=== PATIENT | male | born 1955 | race Caucasian/White ===

== ENCOUNTER → 2018-03-12 07:20 | Outpatient (CLI) | payer OTHER, SELFPAY ==
--- NOTE | 2018-03-12 07:33 | MRI_ITS ---
STUDY: MRI CERVICAL SPINE WITHOUT CONTRAST REASON FOR EXAM: Male, 63 years old. chronic posterior neck pain, radiates into L shoulder, nki x 6 mons. TECHNIQUE: Standardized fat and water weighted pulse sequences were obtained in the sagittal and axial planes. COMPARISON: None FINDINGS: Normal foramen magnum and brainstem-cervical cord junction. Normal craniovertebral junction. Normal anterior atlantoaxial articulation. Normal odontoid process. There is straightening of the normal cervical lordosis. C2-3: Normal endplates. Normal disc height, signal and morphology. Normal central canal and intervertebral neural foramina. C3-4: Normal endplates. Normal disc height, signal and morphology. Normal central canal and intervertebral neural foramina. C4-5: Normal endplates. Normal disc height, signal and morphology. Normal central canal and intervertebral neural foramina. C5-6: There is mild disc space narrowing and endplate spondylosis. There is a mild disc osteophyte complex with mild central canal stenosis. There is uncovertebral arthropathy with minimal right and moderate left foraminal stenosis C6-7: There is mild disc space narrowing and spondylosis. There is minimal disc osteophyte complex with mild central canal stenosis. There is uncovertebral arthropathy with mild right and minimal left foraminal stenosis. C7-T1: Normal endplates. Normal disc height, signal and morphology. Normal central canal and intervertebral neural foramina. Normal cervical cord. Normal visualized soft tissue structures. MRI/Spine Cervical (Routine) IMPRESSION: C5/C6: Moderate left foraminal stenosis. C6/C7: Mild right foraminal stenosis. Electronically Signed: Juliann Mcneill MD at 8:50 EDT Tel , Service support ,
== END ==
PROVIDERS: Family Provider Family Medicine; PCP Family Medicine; Visit Provider Chiropractor
DX: M50.23 Other cervical disc displacement, cervicothoracic region (principal)
CPT/HCPCS: 72141

== ENCOUNTER 2018-10-29 14:39 | Emergency (ER) | payer OTHER, SELFPAY ==
[2018-10-29 14:43] VITALS: BP 104/63; PULSE 63; RESP 16; TEMP 36.6; O2SAT 96; BMI 26.1
--- NOTE | 2018-10-29 15:11 | ED.DCSUM_ITS ---
History of Present Illness Chief Complaint: Weakness Detail of Chief Complaint: Patient states he staggered secondary to Parkinson's disease Informant: Patient Onset: Today Context: Sudden Onset Timing: Intermittent Quality: Patient states not abnormal having problems with balance or walking Location: See EMS report Current Severity: Mild Maximum Severity: Unable to determine Worsened by: Progression of patient's Parkinson's disease Relieved by: Nothing Associated Symptoms: Patient denies any symptoms. Narrative: Patient is an elderly male with advancing Parkinson's disease. Witnesses saw him stagger. EMS was called. Patient voiced he did not want to be transported. He was transferred because of concern for altered level of consciousness. Patient is not alert but he is oriented x3. Patient answers all questions appropriately. Patient's psychomotor skills are slowed and has masked face appearance consistent with Parkinson's disease. Review of system negative other than problems with balance and Parkinson's disease Prior similar symptoms: Yes Recent Illness/Hospitalization: No Past Medical History - Allergies and Home Meds Allergies/Adverse Reactions: Allergies No Known Allergies Allergy (Verified 10/29/18 14:47) Primary Care Physician: Dean Andrade MD [Primary Care Provider] - Past Medical History: - - Parkinson's disease Surgical History: noncontributory Lives: Spouse/ Significant Other, - - Patient states he contacted his . She works until [employer]. He informed me that she will come to the hospital after work to get him. Smoking Status: Never smoker Alcohol: None Drugs: None Review of Systems General: Denies: Chills, Fever, Malaise, Subjective, Sweats Eyes: Denies: Visual changes - bilaterally, Blurred Vision - bilaterally, Diplopia ENT: Denies: Bilateral ear pain, Rhinorrhea, Sore throat Cardiovascular: Denies: Chest pain, Palpitations Respiratory: Denies: Dyspnea, Cough, Dyspnea on exertion Gastrointestinal: Denies: Abdominal pain, Nausea, Vomiting, Diarrhea, Melena, Hematochezia Genitourinary: Denies: Dysuria, Hematuria, Frequency Musculoskeletal: Denies: Back pain, Extremity Pain Skin: Denies: Rash, Wounds Neurological: Reports: - - Problems with walking secondary to Parkinson's diseas e. Denies: Headache, Weakness, Parasthesia, Numbness Hematologic: Denies: Easy bruising, Easy bleeding Allergy: Denies: Uticaria Physical Exam Vital Signs/Narrative: Vital Signs Temp Pulse Resp BP Pulse Ox 10/29/18 14:43 97.8 F 63 16 104/63 96 Inital Vital Signs reviewed: Yes General: Well nourished, Well developed, No Acute Distress Head: Normocephalic, Atraumatic. Negative for: Tenderness Eyes: Perrl, EOMI. Negative for: Pale conjunctiva, Scleral icterus ENT: Moist mucous membranes, No rhinorrhea Neck: Supple, Nontender, No lymphadenopathy, No JVD Cardiovascular: Regular rate, Regular rhythm, No murmurs, Normal S1, Normal S2 Respiratory: No distress, CTA bilaterally, Chest nontender Abdomen: Soft, Nontender, Nondistended, Normal bowel sounds, No masses Back: Nontender, Normal Inspection Extremities: Nontender, No edema Skin: Normal color, No rash Neurological: Oriented x3, Cranial nerves II-XII grossly intact, Normal Strength, Normal Sensation. Negative for: Alert Psychological: - - Affect is flat. Thought content is normal. Diagnostic/Tx/Re-eval - Medical Decision Making It is my professional opinion the patient's gait problem and slow psychomotor skills are secondary to Parkinson's disease. Since he has absolutely no complaints and a normal exam other than the flat affect and cogwheel rigidity it is my opinion that no testing is required. Nurse was asked to ambulate to make sure patient does not fall and will await arrival of to confirm this is patient's baseline. was spoken to. She states this is his baseline. Therefore, patient will be discharged to home with his . ED Disposition - Plan for ED Patient: Disposition: Home or Assisted Living Diagnosis: Sequela of Parkinson's disease Instructions: Discharge Instructions for Parkinson's Disease Referrals: Dean Andrade MD [Primary Care Provider] - As Needed
--- NOTE | 2018-10-29 15:31 | ED.RN ---
PT REPORT SQUAD BROUGHT HIM IN TO BE SEEN AGAINST HIS WILL. PT AMBULATES DOWN THE HALLWAY WITH NO DIFFICULTY. AT BEDSIDE WITH PT AND REPORTS HE IS AT HIS BASELINE. THIS RN EMPATHIZES WITH PT REGUARDING SITUATION TODAY. PT TO BE D/C.
--- NOTE | 2018-10-29 15:41 | ED.RN ---
PT'S LOBO JAMES'S PHONE NUMBER IS [phone] IF SHE NEEDS TO BE CONTACTED
== END 2018-10-29 15:41 | disposition home or self-care (01) ==
PROVIDERS: Emergency Provider Emergency Medicine; Family Provider Family Medicine; PCP Family Medicine
DX: G20 Parkinson's disease (principal); Z79.899 Other long term (current) drug therapy
CPT/HCPCS: 99284

== ENCOUNTER 2020-10-05 16:29 | Emergency (ER) | payer OTHER, SELFPAY ==
[2020-10-05] VITALS (8 sets, daily range): BP systolic 131–177; BP diastolic 72–103; PULSE 73–88; RESP 14–20; TEMP 36.9; O2SAT 95–99; BMI 24.5
[2020-10-05] MEDS: LORazepam 2 MG/ML Syringe IM (16:45)
--- NOTE | 2020-10-05 16:47 | EKG12_ITS ---
Test Reason : CONFUSION Blood Pressure : / mmHG Vent. Rate : 079 BPM Atrial Rate : 079 BPM P-R Int : 158 ms QRS Dur : 086 ms QT Int : 390 ms P-R-T Axes : 052 029 051 degrees QTc Int : 447 ms Normal sinus rhythm with sinus arrhythmia Normal ECG Confirmed by SARAH ALMODOVAR, JEFFY ([id number]), non linear editor JAVY MCGHEE ([id number]) on 10/07/2020 11:14:44 AM Referred By: RUSS Confirmed By:JEFFY SMITH MD
--- NOTE | 2020-10-05 16:50 | ED.DCSUM_ITS ---
History of Present Illness Chief Complaint: Confusion Narrative: This patient is a 65-year-old male who presents with agitation. He is from a nursing facility. He has Parkinson's disease. He was apparently seen last week at [facility] for increased agitation. He had an evaluation that was notable only for questionable UTI. He was put on antibiotics. His agitation is increased. He was given oral Ativan today. He became increasingly agitated aggressive hitting staff. I am unable to obtain history from the patient. Past Medical History - Allergies and Home Meds Allergies/Adverse Reactions: Allergies No Known Allergies Allergy (Verified 10/05/20 16:41) Primary Care Physician: Dean Andrade MD [Primary Care Provider] - Past Medical History: - - Parkinson's disease Surgical History: noncontributory Smoking Status: Never smoker Review of Systems ROS: Unable to Obtain Physical Exam Vital Signs/Narrative: Vital Signs Temp Pulse Resp BP Pulse Ox 10/05/20 16:35 98.5 F 88 20 H 132/77 H 96 Inital Vital Signs reviewed: Yes General: Well nourished, Well developed Head: Normocephalic Eyes: EOMI ENT: Moist mucous membranes Neck: Supple Cardiovascular: Regular rate, Regular rhythm Respiratory: No distress, CTA bilaterally Abdomen: Soft, Nontender Skin: Normal color Neurological: Alert, - - Alert but not oriented he does not appear to have focal or lateralizing neurological deficits Psychological: Agitated Diagnostic/Tx/Re-eval Impressions Brain CT 10/05/20 20:25 IMPRESSION: Normal unenhanced CT scan of the brain. Electronically Signed: Lux Mcfadden MD at 20:52 EST , Service support , Chest X-Ray 10/05/20 20:30 IMPRESSION: Normal x-ray examination of the chest. Electronically Signed: Lux Mcfadden MD at 20:55 EST , Service support , 10/05/20 20:25 Brain/Head without Contrast [CT] Stat 10/05/20 20:30 CXR [Chest 1 View (Portable)] [RAD] Stat 10/05/20 17:10 Mucosa - Nose SARS-CoV-2 Antigen (Rapid) - Final Laboratory Results 10/05/20 10/05/20 10/05/20 16:22 18:30 18:30 WBC Cancelled Corrected WBC Cancelled RBC Cancelled Hgb Cancelled Hct Cancelled MCV Cancelled MCH Cancelled MCHC Cancelled RDW Std Deviation Cancelled RDW Coeff of Shira Cancelled Plt Count Cancelled MPV Cancelled Immature Gran % (Auto) Cancelled Neut % (Auto) Cancelled Lymph % (Auto) Cancelled [place] % (Auto) Cancelled Eos % (Auto) Cancelled Baso % (Auto) Cancelled Absolute Neuts (auto) Cancelled Absolute Lymphs (auto) Cancelled Total Counted Cancelled Neutrophils % (Manual) Cancelled Band Neutrophils % Cancelled Lymphocytes % (Manual) Cancelled Monocytes % (Manual) Cancelled Eosinophils % (Manual) Cancelled Basophils % (Manual) Cancelled Metamyelocytes % Cancelled Myelocytes % Cancelled Promyelocytes % Cancelled Blast Cells % Cancelled Plasma Cell % (Manual) Cancelled Other Cells % Cancelled Nucleated RBC % Cancelled Nucleated RBCs/100 WBC Cancelled Differential Comment Cancelled Diff Path Review Cancelled Hypersegmented Neuts Cancelled Atypical Lymphocytes Cancelled Reactive Lymphocytes Cancelled Smudge Cells Cancelled Toxic Granulation Cancelled Toxic Vacuolation Cancelled Dohle Bodies Cancelled Stacie Rods Cancelled Platelet Estimate Cancelled Plt Morphology Comment Cancelled RBC Morphology Cancelled Polychromasia Cancelled Hypochromasia Cancelled Poikilocytosis Cancelled Basophilic Stippling Cancelled Anisocytosis Cancelled Microcytosis Cancelled Macrocytosis Cancelled Spherocytes Cancelled Sickle Cells Cancelled Target Cells Cancelled Tear Drop Cells Cancelled Ovalocytes Cancelled Stomatocytes Cancelled [place] Bodies Cancelled Zach Cells Cancelled Bite Cells Cancelled Crenated Cell Cancelled Acanthocytes (Spur) Cancelled Rouleaux Cancelled Schistocytes Cancelled Sodium Cancelled Potassium Cancelled Chloride Cancelled Carbon Dioxide Cancelled Anion Gap Cancelled BUN Cancelled Creatinine Cancelled Estim Creat Clear Calc Cancelled Est GFR (MDRD) Af Amer Cancelled Est GFR (MDRD) Non-Af Cancelled BUN/Creatinine Ratio Cancelled Glucose Cancelled Calcium Cancelled Total Bilirubin Cancelled AST Cancelled ALT Cancelled Alkaline Phosphatase Cancelled Total Creatine Kinase Total Protein Cancelled Albumin Cancelled Globulin Cancelled Albumin/Globulin Ratio Cancelled Urine Color Urine Clarity Urine pH Ur Specific [place] Urine Protein Urine Glucose (UA) Urine Ketones Urine Occult Blood Urine Nitrite Urine Bilirubin Urine Urobilinogen Ur Leukocyte Esterase Urine RBC Urine WBC Ur Squamous Epith Cells Ur Transition Epith Cell Ur Renal Epithelial Cell Urine Bacteria Urine Mucus Fluid Crystals Cancelled Fluid Crystal Source Cancelled Fl Crystal Path Review Cancelled Synovial Source Cancelled Synovial Color Cancelled Synovial Appearance Cancelled Synovial Volume Cancelled Synovial Viscosity Cancelled Synovial WBC Cancelled Synovial RBC Cancelled Synovial Tot Cell Ct Cancelled Synov Polynuclear WBCs Cancelled Synov Mononuclear WBCs Cancelled Synovial Neutrophils Cancelled Synovial Lymphocytes Cancelled Synovial Monocytes Cancelled Synovial Plasma Cells Cancelled Synovial Other Cells Cancelled Synovial Polynuclear % Cancelled Synovial Mononuclear % Cancelled Synovial Path Comment Cancelled Urine Opiates Screen Urine Methadone Screen Ur Barbiturates Screen Ur Phencyclidine Scrn Ur Amphetamines Screen U Methamphetamin-MDMA U Benzodiazepines Scrn Urine Cocaine Screen U Cannabinoids Screen Ur Drug Screen Comment Ethyl Alcohol 10/05/20 10/05/20 10/05/20 18:30 19:30 19:30 WBC 6.6 Corrected WBC RBC 4.95 Hgb 14.6 Hct 44.4 MCV 89.7 MCH 29.5 MCHC 32.9 RDW Std Deviation 43.8 RDW Coeff of Shira 13.4 Plt Count 349 MPV 9.1 Immature Gran % (Auto) 0.200 Neut % (Auto) 64.0 Lymph % (Auto) 24.2 [place] % (Auto) 9.9 Eos % (Auto) 1.2 Baso % (Auto) 0.5 Absolute Neuts (auto) 4.2 Absolute Lymphs (auto) 1.59 Total Counted Neutrophils % (Manual) Band Neutrophils % Lymphocytes % (Manual) Monocytes % (Manual) Eosinophils % (Manual) Basophils % (Manual) Metamyelocytes % Myelocytes % Promyelocytes % Blast Cells % Plasma Cell % (Manual) Other Cells % Nucleated RBC % 0 Nucleated RBCs/100 WBC Differential Comment Diff Path Review Hypersegmented Neuts Atypical Lymphocytes Reactive Lymphocytes Smudge Cells Toxic Granulation Toxic Vacuolation Dohle Bodies Stacie Rods Platelet Estimate Plt Morphology Comment RBC Morphology Polychromasia Hypochromasia Poikilocytosis Basophilic Stippling Anisocytosis Microcytosis Macrocytosis Spherocytes Sickle Cells Target Cells Tear Drop Cells Ovalocytes Stomatocytes [place] Bodies Zach Cells Bite Cells Crenated Cell Acanthocytes (Spur) Rouleaux Schistocytes Sodium 141 Potassium 4.0 Chloride 109 H Carbon Dioxide 27.0 Anion Gap 5 BUN 24 H Creatinine 0.93 Estim Creat Clear Calc 69.80 Est GFR (MDRD) Af Amer 105 Est GFR (MDRD) Non-Af 87 BUN/Creatinine Ratio 25.9 H Glucose 104 Calcium 9.2 Total Bilirubin 0.60 AST 22 ALT 21 Alkaline Phosphatase 76 Total Creatine Kinase Total Protein 7.2 Albumin 4.1 Globulin 3.1 Albumin/Globulin Ratio 1.3 Urine Color Urine Clarity Urine pH Ur Specific [place] Urine Protein Urine Glucose (UA) Urine Ketones Urine Occult Blood Urine Nitrite Urine Bilirubin Urine Urobilinogen Ur Leukocyte Esterase Urine RBC Urine WBC Ur Squamous Epith Cells Ur Transition Epith Cell Ur Renal Epithelial Cell Urine Bacteria Urine Mucus Fluid Crystals Fluid Crystal Source Fl Crystal Path Review Synovial Source Synovial Color Synovial Appearance Synovial Volume Synovial Viscosity Synovial WBC Synovial RBC Synovial Tot Cell Ct Synov Polynuclear WBCs Synov Mononuclear WBCs Synovial Neutrophils Synovial Lymphocytes Synovial Monocytes Synovial Plasma Cells Synovial Other Cells Synovial Polynuclear % Synovial Mononuclear % Synovial Path Comment Urine Opiates Screen Urine Methadone Screen Ur Barbiturates Screen Ur Phencyclidine Scrn Ur Amphetamines Screen U Methamphetamin-MDMA U Benzodiazepines Scrn Urine Cocaine Screen U Cannabinoids Screen Ur Drug Screen Comment Ethyl Alcohol Cancelled 10/05/20 10/05/20 10/05/20 19:30 19:30 19:45 WBC Corrected WBC RBC Hgb Hct MCV MCH MCHC RDW Std Deviation RDW Coeff of Shira Plt Count MPV Immature Gran % (Auto) Neut % (Auto) Lymph % (Auto) [place] % (Auto) Eos % (Auto) Baso % (Auto) Absolute Neuts (auto) Absolute Lymphs (auto) Total Counted Neutrophils % (Manual) Band Neutrophils % Lymphocytes % (Manual) Monocytes % (Manual) Eosinophils % (Manual) Basophils % (Manual) Metamyelocytes % Myelocytes % Promyelocytes % Blast Cells % Plasma Cell % (Manual) Other Cells % Nucleated RBC % Nucleated RBCs/100 WBC Differential Comment Diff Path Review Hypersegmented Neuts Atypical Lymphocytes Reactive Lymphocytes Smudge Cells Toxic Granulation Toxic Vacuolation Dohle Bodies Stacie Rods Platelet Estimate Plt Morphology Comment RBC Morphology Polychromasia Hypochromasia Poikilocytosis Basophilic Stippling Anisocytosis Microcytosis Macrocytosis Spherocytes Sickle Cells Target Cells Tear Drop Cells Ovalocytes Stomatocytes [place] Bodies [place] Cells Bite Cells Crenated Cell Acanthocytes (Spur) Rouleaux Schistocytes Sodium Potassium Chloride Carbon Dioxide Anion Gap BUN Creatinine Estim Creat Clear Calc Est GFR (MDRD) Af Amer Est GFR (MDRD) Non-Af BUN/Creatinine Ratio Glucose Calcium Total Bilirubin AST ALT Alkaline Phosphatase Total Creatine Kinase 221 Total Protein Albumin Globulin Albumin/Globulin Ratio Urine Color Yellow Urine Clarity Clear Urine pH 7.0 Ur Specific [place] 1.010 Urine Protein Negative Urine Glucose (UA) Normal Urine Ketones Negative Urine Occult Blood 25 H Urine Nitrite Negative Urine Bilirubin Negative Urine Urobilinogen Normal Ur Leukocyte Esterase Negative Urine RBC 0-5 SEEN Urine WBC 0 SEEN Ur Squamous Epith Cells 0 SEEN Ur Transition Epith Cell 0 SEEN Ur Renal Epithelial Cell 0-5 SEEN Urine Bacteria 0 SEEN Urine Mucus 0 SEEN Fluid Crystals Fluid Crystal Source Fl Crystal Path Review Synovial Source Synovial Color Synovial Appearance Synovial Volume Synovial Viscosity Synovial WBC Synovial RBC Synovial Tot Cell Ct Synov Polynuclear WBCs Synov Mononuclear WBCs Synovial Neutrophils Synovial Lymphocytes Synovial Monocytes Synovial Plasma Cells Synovial Other Cells Synovial Polynuclear % Synovial Mononuclear % Synovial Path Comment Urine Opiates Screen Urine Methadone Screen Ur Barbiturates Screen Ur Phencyclidine Scrn Ur Amphetamines Screen U Methamphetamin-MDMA U Benzodiazepines Scrn Urine Cocaine Screen U Cannabinoids Screen Ur Drug Screen Comment Ethyl Alcohol 3.0 10/05/20 19:45 WBC Corrected WBC RBC Hgb Hct MCV MCH MCHC RDW Std Deviation RDW Coeff of Shira Plt Count MPV Immature Gran % (Auto) Neut % (Auto) Lymph % (Auto) [place] % (Auto) Eos % (Auto) Baso % (Auto) Absolute Neuts (auto) Absolute Lymphs (auto) Total Counted Neutrophils % (Manual) Band Neutrophils % Lymphocytes % (Manual) Monocytes % (Manual) Eosinophils % (Manual) Basophils % (Manual) Metamyelocytes % Myelocytes % Promyelocytes % Blast Cells % Plasma Cell % (Manual) Other Cells % Nucleated RBC % Nucleated RBCs/100 WBC Differential Comment Diff Path Review Hypersegmented Neuts Atypical Lymphocytes Reactive Lymphocytes Smudge Cells Toxic Granulation Toxic Vacuolation Dohle Bodies Stacie Rods Platelet Estimate Plt Morphology Comment RBC Morphology Polychromasia Hypochromasia Poikilocytosis Basophilic Stippling Anisocytosis Microcytosis Macrocytosis Spherocytes Sickle Cells Target Cells Tear Drop Cells Ovalocytes Stomatocytes [place] Bodies [place] Cells Bite Cells Crenated Cell Acanthocytes (Spur) Rouleaux Schistocytes Sodium Potassium Chloride Carbon Dioxide Anion Gap BUN Creatinine Estim Creat Clear Calc Est GFR (MDRD) Af Amer Est GFR (MDRD) Non-Af BUN/Creatinine Ratio Glucose Calcium Total Bilirubin AST ALT Alkaline Phosphatase Total Creatine Kinase Total Protein Albumin Globulin Albumin/Globulin Ratio Urine Color Urine Clarity Urine pH Ur Specific [place] Urine Protein Urine Glucose (UA) Urine Ketones Urine Occult Blood Urine Nitrite Urine Bilirubin Urine Urobilinogen Ur Leukocyte Esterase Urine RBC Urine WBC Ur Squamous Epith Cells Ur Transition Epith Cell Ur Renal Epithelial Cell Urine Bacteria Urine Mucus Fluid Crystals Fluid Crystal Source Fl Crystal Path Review Synovial Source Synovial Color Synovial Appearance Synovial Volume Synovial Viscosity Synovial WBC Synovial RBC Synovial Tot Cell Ct Synov Polynuclear WBCs Synov Mononuclear WBCs Synovial Neutrophils Synovial Lymphocytes Synovial Monocytes Synovial Plasma Cells Synovial Other Cells Synovial Polynuclear % Synovial Mononuclear % Synovial Path Comment Urine Opiates Screen NEGATIVE Urine Methadone Screen NEGATIVE Ur Barbiturates Screen NEGATIVE Ur Phencyclidine Scrn NEGATIVE Ur Amphetamines Screen NEGATIVE U Methamphetamin-MDMA NEGATIVE U Benzodiazepines Scrn NEGATIVE Urine Cocaine Screen NEGATIVE U Cannabinoids Screen NEGATIVE Ur Drug Screen Comment Ethyl Alcohol - Medical Decision Making On arrival patient was agitated refusing to lay back in bed aggressive towards staff. He was placed in restraints. He was given intramuscular Ativan, we have no Haldol available due to a shortage. Patient been very agitated. He was also given intramuscular Geodon. EKG shows sinus rhythm at a rate of 79 with sinus arrhythmia otherwise normal. Serum labs are unremarkable. CT of the head and chest x-ray are unremarkable. Patient continued to be agitated. An IV was established with blood draw and patient was ultimately given 2 mg of further IV Ativan. On reevaluation he is resting comfortably. He was able to be removed from restraints. I do believe he will require hospitalization such as to a geriatric psychiatric unit for dementia with behavioral disturbance. I spoke to crisis. They will evaluate the patient once more alert. Patient signed out to the oncoming physician. Ultimate plan would be hospitalization. ED Disposition - Plan for ED Patient: Disposition: Psychiatric Hospital or Unit Diagnosis: Dementia with behavioral disturbance Referrals: Dean Andrade MD [Primary Care Provider] -
--- NOTE | 2020-10-05 16:55 | NURSING ---
NO OLD EKGS
[2020-10-05] MEDS: Ziprasidone IM 20 MG/ML VIAL 10 MG IM (17:23)
[2020-10-05 19:38] LABS: Absolute Lymphocyte Count 1.59 X10^3/uL (0.83-4.51); Absolute Neutrophil Count 4.2 X10^3/uL (2.0-7.7); Basophil# 0.03 X10^3/uL; Basophil% 0.5 % (0-1); Eosinophil# 0.08 X10^3/uL; Eosinophils% 1.2 % (0-5); Hematocrit 44.4 % (40-54); Hemoglobin 14.6 g/dL (13.0-16.5); Lymphocyte # 1.59 X10^3/ul (4.0); Lymphocyte % 24.2 % (19-41); Mean Corp Hgb Conc 32.9 g/dL (32-36); Mean Corpuscular Hgb 29.5 pg (27.0-32.0); Mean Corpuscular Volume 89.7 fL (80-94); Mean Platelet Vol. 9.1 fl (6.2-12.0); Monocyte# 0.65 X10^3/uL; Monocyte% 9.9 % (0-10); NRBC Flagged by Analyzer 0 % (0-5); Neutrophil # 4.22 X10^3/uL (2.7-7.7); Platelet Count 349 K/mm3 (150-450); RBC Distribution Width CV 13.4 % (11.6-14.6); RBC Distribution Width SD 43.8 fl (35.1-43.9); Red Blood Count 4.95 M/mm3 (4.6-6.2); White Blood Count 6.6 K/mm3 (4.4-11.0)
[2020-10-05] MEDS: LORazepam 2 MG/ML Syringe 1 MG IV ×2 (19:39→19:51)
[2020-10-05 19:56] LABS: ALB/GLOB Ratio 1.3 RATIO (0.9-2.4); AST(SGOT) 22 U/L (15-37); Alanine Aminotransfer ALT/SGPT 21 U/L (16-61); Albumin, Serum 4.1 g/dL (3.2-5.0); Alkaline Phosphatase 76 U/L (45-117); Anion Gap 5 (5-15); BUN 24 mg/dL (7-18); BUN/Creat Ratio 25.9 RATIO (10-20); Calcium,Total 9.2 mg/dL (8.5-10.1); Chloride 109 mmol/L (98-107); Creatinine, Serum 0.93 mg/dL (0.70-1.30); EST Glomerular Filtration Rate 87 mL/min (>60); Est Glom Filt Rate - Afr Amer 105 mL/min (>60); Globulin 3.1 g/dL (2.2-4.2); Glucose 104 mg/dL (74-106); Protein, Total 7.2 g/dL (6.4-8.2); Sodium Level 141 mmol/L (136-145)
[2020-10-05 19:57] LABS: Bacteria 0 SEEN /hpf (None Seen); Mucous, Urine 0 SEEN /hpf (<or=2+); Squamous Epithelial Cells - UA 0 SEEN /hpf (0-5); White Blood Cells 0 SEEN /hpf (0-5)
[2020-10-05 20:11] LABS: CPK Total, Creatine Kinase 221 U/L (39-308)
[2020-10-05 20:17] LABS: Color, Urine Yellow (Yellow); Glucose, Dipstick Normal (Normal); Ketone-Dipstick Negative (Negative); Leukocyte Esterase-Dipstick Negative /ul (Negative); Nitrite-Dipstick Negative (Negative); Occult Blood-Urine 25 /ul (Negative); Protein-Dipstick Negative (Negative); Urine Bilirubin Dipstick Negative (Negative); Urine Clarity Clear (Clear); Urine Urobilinogen Normal (Normal)
--- NOTE | 2020-10-05 20:25 | CT_ITS ---
STUDY: CT BRAIN WITHOUT CONTRAST REASON FOR EXAM: Male, 65 years old. CONFUSION AND COMBATIVE. PT HAS DEMENTIA RADIATION DOSAGE (If Supplied By Facility): CTDIvol = ( 44.99 ) mGy, DLP = ( 812.98 ) mGycm TECHNIQUE: Transaxial CT imaging of the brain was performed without administration of intravenous contrast material. Individualized dose optimization techniques were used for this CT. COMPARISON: No relevant priors. FINDINGS: Normal soft tissue structures. Normal calvarium. Normal size ventricles and extra-axial spaces for the patient''s age. Normal white matter tracts of the cerebral hemispheres. Normal basal ganglia and thalami. Normal brainstem. Normal cerebellum. There is no intracranial hemorrhage. There are no findings of an acute ischemic infarction. Normal visualized paranasal sinuses. CT/Brain/Head without Contrast IMPRESSION: Normal unenhanced CT scan of the brain. Electronically Signed: Lux Mcfadden MD at 20:52 EST , Service support ,
[2020-10-05 20:27] LABS: Amphetamine Urine VISTA NEGATIVE (<1000 ng/mL); Barbiturate Urine VISTA NEGATIVE (< 200 ng/mL); Benzodiazepine Urine VISTA NEGATIVE (< 200 ng/mL); Cocaine Urine VISTA NEGATIVE (< 300 ng/mL); Ecstacy Urine VISTA NEGATIVE (< 500 ng/mL); Methadone Urine VISTA NEGATIVE (< 300 ng/mL); PCP Urine VISTA NEGATIVE (< 25 ng/mL); THC Urine VISTA NEGATIVE (< 50 ng/mL); Vista UDS pH Range 6
--- NOTE | 2020-10-05 20:30 | RAD_ITS ---
STUDY: X-RAY CHEST REASON FOR EXAM: Male, 65 years old. combative and confused. TECHNIQUE: Single AP portable view of the chest. COMPARISON: None. FINDINGS: The lungs are clear and expanded. There is no demonstrated pleural abnormality. Normal size heart. Normal mediastinum and mary anne. Normal visualized pulmonary arteries. Normal visualized aortic arch and descending thoracic aorta. Normal visualized thoracic spine. Normal visualized ribs, clavicles, and shoulders. There is no demonstrated abnormality of the visualized soft tissue structures of the upper abdomen. RAD/Chest 1 View (Portable) IMPRESSION: Normal x-ray examination of the chest. Electronically Signed: Lux Mcfadden MD at 20:55 EST , Service support ,
[2020-10-05 20:32] LABS: Renal Epithelial Cells 0-5 SEEN /hpf (0-5)
[2020-10-05 20:33] LABS: Red Blood Cells-Urine 0-5 SEEN /hpf (0-5)
[2020-10-05 20:37] LABS: Transitional Epithelial - Ur 0 SEEN /hpf (0-5)
--- NOTE | 2020-10-05 21:18 | ED.RN ---
PAGED [facility], AND FAXED THE REPORT. JOANN IS CENTRIFUGAL SUPERVISOR
[2020-10-06] VITALS (7 sets, daily range): BP systolic 119–136; BP diastolic 69–84; PULSE 67–85; RESP 14–18; TEMP 36.7; O2SAT 96–97
--- NOTE | 2020-10-06 03:07 | ED.RN ---
CALLED [facility] TO REQUEST AN UPDATE ON PLACEMENT, WAITING FOR A RESPONSE
--- NOTE | 2020-10-06 05:27 | ED.RN ---
SPOKE TO [facility], FAXED MORE INFO REQUESTED, SHE IS WORKING ON PLACEMENT STARTING WITH JASPER
--- NOTE | 2020-10-06 06:12 | ED.RN ---
[facility] called given information. additional information being faxed to them at this time
--- NOTE | 2020-10-06 07:17 | NURSING ---
FAXED DRUG SCREEN AND DR CLEARANCE TO [facility]
--- NOTE | 2020-10-06 07:44 | NURSING ---
FAXED COPY OF PINK SLIP AND HALFW[employer] PAPERS
--- NOTE | 2020-10-06 08:56 | ED.RN ---
[facility] ETA 30 MINUTES
== END 2020-10-06 10:01 ==
PROVIDERS: Emergency Provider Emergency Medicine; PCP Family Medicine
DX: F03.91 Unspecified dementia, unspecified severity, with behavioral disturbance (principal); G20 Parkinson's disease
CPT/HCPCS: 70450; 71045; 80053; 80307; 81001; 82077; 82550; 85025; 87426; 93005; 96372; 96374; 99285; A4216; J3486

== ENCOUNTER 2020-10-27 14:32 | Emergency (ER) | payer OTHER, SELFPAY ==
[2020-10-05 16:35] VITALS: BMI 24.5
[2020-10-27 14:34] VITALS: BP 158/66; PULSE 119; RESP 18; TEMP 37.7; O2SAT 96; BMI 23.1
--- NOTE | 2020-10-27 14:37 | EKG12_ITS ---
Test Reason : Blood Pressure : / mmHG Vent. Rate : 091 BPM Atrial Rate : 091 BPM P-R Int : 164 ms QRS Dur : 098 ms QT Int : 380 ms P-R-T Axes : 039 003 -21 degrees QTc Int : 467 ms Normal sinus rhythm Left ventricular hypertrophy with repolarization abnormality Abnormal ECG Confirmed by LISA ALMODOVAR, DUNIA ([id number]), editor dictionary SHIRAZ DIETRICH ([id number]) on 10/31/2020 9:55:39 AM Referred By: FELI Confirmed By:VILLA GONZALEZ MD
--- NOTE | 2020-10-27 14:38 | CT_ITS ---
STUDY: CT BRAIN WITHOUT CONTRAST REASON FOR EXAM: Male, 65 years old. altered mental status RADIATION DOSAGE (If Supplied By Facility): CTDIvol = ( 60.81 ) mGy, DLP = ( 1067.08 ) mGycm TECHNIQUE: Transaxial CT imaging of the brain was performed without administration of intravenous contrast material. Individualized dose optimization techniques were used for this CT. COMPARISON: 10/05/2020. FINDINGS: Normal soft tissue structures. Normal calvarium. Normal size ventricles and extra-axial spaces for the patient''s age. Normal white matter tracts of the cerebral hemispheres. Normal basal ganglia and thalami. Normal brainstem. Normal cerebellum. There is no intracranial hemorrhage. There are no findings of an acute ischemic infarction. Mild mucosal thickening in the right maxillary sinus. No change since prior study. CT/Brain/Head without Contrast IMPRESSION: Normal unenhanced CT scan of the brain. No evidence for acute bleed. If concern for acute infarct MRI recommended. Electronically Signed: Petr Coughlin MD at 16:28 EST , Service support ,
[2020-10-27] MEDS: Haloperidol Lactate 5 MG/ML Vial 10 MG IM (14:40)
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
[2020-10-27 15:49] LABS: Absolute Lymphocyte Count 0.71 X10^3/uL (0.83-4.51); Absolute Neutrophil Count 5.5 X10^3/uL (2.0-7.7); Basophil# 0.03 X10^3/uL; Basophil% 0.4 % (0-1); Eosinophil# 0.04 X10^3/uL; Eosinophils% 0.6 % (0-5); Hematocrit 39.8 % (40-54); Hemoglobin 13.2 g/dL (13.0-16.5); Lymphocyte # 0.71 X10^3/ul (4.0); Lymphocyte % 10.3 % (19-41); Mean Corp Hgb Conc 33.2 g/dL (32-36); Mean Corpuscular Hgb 30.2 pg (27.0-32.0); Mean Corpuscular Volume 91.1 fL (80-94); Monocyte# 0.55 X10^3/uL; NRBC Flagged by Analyzer 0 % (0-5); Neutrophil # 5.53 X10^3/uL (2.7-7.7); Neutrophil % 80.3 % (47-70); Platelet Count 289 K/mm3 (150-450); RBC Distribution Width CV 13.2 % (11.6-14.6); RBC Distribution Width SD 44.5 fl (35.1-43.9); Red Blood Count 4.37 M/mm3 (4.6-6.2); White Blood Count 6.9 K/mm3 (4.4-11.0)
[2020-10-27 15:58] LABS: Bacteria 0 SEEN /hpf (None Seen); Red Blood Cells-Urine 0 SEEN /hpf (0-5); Squamous Epithelial Cells - UA 0 SEEN /hpf (0-5)
[2020-10-27 16:02] LABS: Color, Urine Amber (Yellow); Glucose, Dipstick 50 mg/dl (Normal); Ketone-Dipstick 15 mg/dl (Negative); Leukocyte Esterase-Dipstick 25 /ul (Negative); Nitrite-Dipstick Negative (Negative); Occult Blood-Urine 10 /ul (Negative); Protein-Dipstick 15 mg/dl (Negative); Urine Bilirubin Dipstick Negative (Negative); Urine Clarity Clear (Clear); Urine Urobilinogen Normal (Normal)
[2020-10-27 16:12] LABS: ALB/GLOB Ratio 1.3 RATIO (0.9-2.4); AST(SGOT) 18 U/L (15-37); Alanine Aminotransfer ALT/SGPT 14 U/L (16-61); Albumin, Serum 3.5 g/dL (3.2-5.0); Alkaline Phosphatase 60 U/L (45-117); Anion Gap 8 (5-15); BUN 35 mg/dL (7-18); Calcium,Total 8.6 mg/dL (8.5-10.1); Chloride 105 mmol/L (98-107); Creatinine, Serum 1.25 mg/dL (0.70-1.30); EST Glomerular Filtration Rate 62 mL/min (>60); Est Glom Filt Rate - Afr Amer 75 mL/min (>60); Estimated Creatinine Clearance 55.82 ml/min; Globulin 2.7 g/dL (2.2-4.2); Glucose 220 mg/dL (74-106); Potassium 2.9 mmol/L (3.5-5.1); Protein, Total 6.2 g/dL (6.4-8.2); Sodium Level 138 mmol/L (136-145)
[2020-10-27 16:15] LABS: Mucous, Urine RARE /hpf (<or=2+); White Blood Cells 0-5 SEEN /hpf (0-5)
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
--- NOTE | 2020-10-27 16:18 | RAD_ITS ---
STUDY: X-RAY - PELVIS REASON FOR EXAM: Male, 65 years old. injury TECHNIQUE: One view of the pelvis was obtained. COMPARISON: None. FINDINGS: There is a non-specific bowel gas pattern. Normal visualized soft tissue structures. Normal bilateral iliac wings, sacroiliac joints and visualized sacrum. Normal visualized bilateral superior and inferior pubic rami. Normal pubic symphysis. Normal ischial tuberosities. Normal visualized right femoral head. Normal right acetabulum. Normal right hip joint. Normal visualized left femoral head. Normal left acetabulum. Normal left hip joint. RAD/Pelvis 1 or 2 Views IMPRESSION: Normal x-ray examination of the pelvis. Electronically Signed: Petr Coughlin MD at 17:02 EST , Service support ,
--- NOTE | 2020-10-27 16:30 | RAD_ITS ---
STUDY: X-RAY CHEST REASON FOR EXAM: Male, 65 years old. injury TECHNIQUE: AP portable COMPARISON: None. FINDINGS: Less than optimal inspiratory effort is seen however the lungs are clear.. There is no demonstrated pleural abnormality. Borderline cardiomegaly.. Normal mediastinum and mary anne. Normal visualized pulmonary arteries. Normal visualized aortic arch and descending thoracic aorta. Dorsal spine and shoulders demonstrate degenerative change Normal visualized ribs, and clavicles. There is no demonstrated abnormality of the visualized soft tissue structures of the upper abdomen. RAD/Chest 1 View IMPRESSION: Diminished inspiratory effort. No acute disease Electronically Signed: Petr Coughlin MD at 17:01 EST , Service support ,
[2020-10-27 16:48] LABS: Alcohol, Blood (Medical)-Serum < 3.0 mg/dL; Valproic Acid (Depakene) Level 20 ug/mL (50-100)
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
[2020-10-27 17:16] LABS: Amphetamine Urine VISTA NEGATIVE (<1000 ng/mL); Barbiturate Urine VISTA NEGATIVE (< 200 ng/mL); Benzodiazepine Urine VISTA NEGATIVE (< 200 ng/mL); Cocaine Urine VISTA NEGATIVE (< 300 ng/mL); Ecstacy Urine VISTA NEGATIVE (< 500 ng/mL); Methadone Urine VISTA NEGATIVE (< 300 ng/mL); PCP Urine VISTA NEGATIVE (< 25 ng/mL); THC Urine VISTA NEGATIVE (< 50 ng/mL); Vista UDS pH Range 5
[2020-10-27] MEDS: Potassium Chloride 10mEq/100mL 10 MEQ/100 ML IV.SOLN. 100 MEQ IV BOLUS (17:46)
--- NOTE | 2020-10-27 17:59 | CM.ED ---
SOCIAL WORK Call to [facility]. Per intake, not in network with patient's insurance. Call to [facility], spoke with intake. Worker reports in network with patient's insurance and will review referral. Referral faxed at this time. Ilana Schroeder, INVASIVE MANAGER, EDITOR PRODUCER
[2020-10-27 18:11] VITALS: BP 132/94; PULSE 103; RESP 20; TEMP 37; O2SAT 94
--- NOTE | 2020-10-27 18:32 | CM.ED ---
SOCIAL WORK Call from [facility]. Intake reports reviewed with physician. They would like patient observed for 2 hours and called at 8:30p with behavioral update. Staff updated. Referral pending at [facility]. Ilana Schroeder MSW, CONCRETE BOOM PUMP OPERATOR
[2020-10-27 20:05] VITALS: BP 131/63; PULSE 80; RESP 17; O2SAT 97
--- NOTE | 2020-10-27 20:23 | CM.ED ---
SOCIAL WORK Call to [facility] to update on patient's behavioral status per request. front worker requesting updated medication list and [place] at this time. Ilana Schroeder, FORMING PROCESS LINE WORKER, PROPERTY ACCOUNTANT
--- NOTE | 2020-10-27 20:35 | CM.ED ---
SOCIAL WORK Patient accepted to [facility] by Dr. Crouch to room 110 1. Nurse to call report to [phone]. Founder & Ceo to set up transport as Kiel unable to draft roller picker until 1am. Ilana Schroeder, BILINGUAL HR GENERALIST, BOWLING ALLEY REFINISHER
--- NOTE | 2020-10-27 21:23 | ED.RN ---
attempted to call report to [facility]. no answer, phone rang until a message came across stating try again later
[2020-10-27 22:10] VITALS: BP 118/101; PULSE 81; RESP 20; O2SAT 92
[2020-10-28 00:19] VITALS: BP 156/71; PULSE 64; RESP 18
[2020-10-28 02:29] VITALS: BP 160/62; PULSE 65; RESP 14; O2SAT 94
== END 2020-10-28 02:48 ==
PROVIDERS: Emergency Provider Emergency Medicine; PCP Family Medicine
DX: S39.012A Strain of muscle, fascia and tendon of lower back, initial encounter (principal); S00.83XA Contusion of other part of head, initial encounter; X58.XXXA Exposure to other specified factors, initial encounter; Y93.89 Activity, other specified; Y92.129 Unspecified place in nursing home as the place of occurrence of the external cause; Y99.9 Unspecified external cause status; G20 Parkinson's disease; E87.6 Hypokalemia; R44.3 Hallucinations, unspecified; Z86.16 Personal history of COVID-19
CPT/HCPCS: 70450; 71045; 72100; 72170; 80053; 80164; 80307; 81001; 82077; 84484; 85025; 87426; 93005; 96365; 96366; 96372; 99285; J7030; A4216

== ENCOUNTER 2020-11-10 19:14 | Emergency (ER) | payer OTHER, SELFPAY ==
[2020-11-10 19:16] VITALS: BP 152/70; PULSE 71; RESP 16; TEMP 36.6; O2SAT 93; BMI 22.6
--- NOTE | 2020-11-10 19:26 | EKG12_ITS ---
Test Reason : [facility] [place] Blood Pressure : / mmHG Vent. Rate : 123 BPM Atrial Rate : 123 BPM P-R Int : 142 ms QRS Dur : 088 ms QT Int : 308 ms P-R-T Axes : 044 -05 000 degrees QTc Int : 440 ms Sinus tachycardia Left ventricular hypertrophy with repolarization abnormality Abnormal ECG Confirmed by LISA ALMODOVAR, DUNIA ([id number]), business editor SHIRAZ DIETRICH ([id number]) on 11/14/2020 10:59:36 A M Referred By: CAROLYN Confirmed By:VILLA GONZALEZ MD
--- NOTE | 2020-11-10 20:02 | CM.ED ---
Addendum entered by Roxana Ortiz 11/10/20 20:52: This social services manager to attempt placement and crisis to follow further if needed. Original Note: Social Work Chart review completed. Patient noted to have discharge to [facility] on 10/27/2020. Telephone call to Juni Puri, intake. Patient discharged from [facility] on 11/08/2020 to [facility] ([facility] Patient has been at [facility] for the past 2 days. Unable to complete assessment with patient currently. Crisis to follow for placement due to after SW hours. Telephone call to Dionne Lima. Dionne updated on above information. Crisis requesting for clinical information to be faxed to when patient is medically cleared. Medical team updated. Corby MANZANO, CHERYLE
[2020-11-10 20:06] LABS: Bacteria 0 SEEN /hpf (None Seen); Red Blood Cells-Urine 0 SEEN /hpf (0-5); Squamous Epithelial Cells - UA 0 SEEN /hpf (0-5); White Blood Cells 0 SEEN /hpf (0-5)
[2020-11-10 20:07] LABS: Absolute Neutrophil Count 8.9 X10^3/uL (2.0-7.7); Basophil# 0.03 X10^3/uL; Basophil% 0.3 % (0-1); Eosinophils% 0.8 % (0-5); Hematocrit 43.1 % (40-54); Hemoglobin 13.9 g/dL (13.0-16.5); Lymphocyte % 16.9 % (19-41); Mean Corp Hgb Conc 32.3 g/dL (32-36); Mean Corpuscular Hgb 29.5 pg (27.0-32.0); Mean Corpuscular Volume 91.5 fL (80-94); Mean Platelet Vol. 9.7 fl (6.2-12.0); Monocyte# 0.81 X10^3/uL; Monocyte% 6.8 % (0-10); NRBC Flagged by Analyzer 0 % (0-5); Neutrophil # 8.85 X10^3/uL (2.7-7.7); Neutrophil % 74.7 % (47-70); Platelet Count 358 K/mm3 (150-450); RBC Distribution Width CV 13.2 % (11.6-14.6); RBC Distribution Width SD 44.5 fl (35.1-43.9); Red Blood Count 4.71 M/mm3 (4.6-6.2); White Blood Count 11.9 K/mm3 (4.4-11.0)
[2020-11-10 20:13] LABS: Color, Urine Amber (Yellow); Glucose, Dipstick 100 mg/dl (Normal); Ketone-Dipstick 50 mg/dl (Negative); Leukocyte Esterase-Dipstick 25 /ul (Negative); Nitrite-Dipstick Negative (Negative); Occult Blood-Urine 10 /ul (Negative); Protein-Dipstick 15 mg/dl (Negative); Urine Bilirubin Dipstick Negative (Negative); Urine Clarity Clear (Clear); Urine Urobilinogen Normal (Normal)
[2020-11-10 20:20] LABS: Alcohol, Blood (Medical)-Serum < 3.0 mg/dL
[2020-11-10 20:21] LABS: Amphetamine Urine VISTA NEGATIVE (<1000 ng/mL); Barbiturate Urine VISTA NEGATIVE (< 200 ng/mL); Benzodiazepine Urine VISTA NEGATIVE (< 200 ng/mL); Cocaine Urine VISTA NEGATIVE (< 300 ng/mL); Ecstacy Urine VISTA NEGATIVE (< 500 ng/mL); Methadone Urine VISTA NEGATIVE (< 300 ng/mL); PCP Urine VISTA NEGATIVE (< 25 ng/mL); THC Urine VISTA NEGATIVE (< 50 ng/mL); Vista UDS pH Range 6
[2020-11-10 20:26] LABS: Hyaline Cast 0-5 SEEN /lpf (0-5); Mucous, Urine RARE /hpf (<or=2+)
[2020-11-10 20:26] LABS: ALB/GLOB Ratio 1.2 RATIO (0.9-2.4); AST(SGOT) 14 U/L (15-37); Alanine Aminotransfer ALT/SGPT 14 U/L (16-61); Albumin, Serum 3.7 g/dL (3.2-5.0); Alkaline Phosphatase 61 U/L (45-117); Anion Gap 12 (5-15); BUN 29 mg/dL (7-18); BUN/Creat Ratio 23.6 RATIO (10-20); Calcium,Total 9.1 mg/dL (8.5-10.1); Chloride 102 mmol/L (98-107); Creatinine, Serum 1.23 mg/dL (0.70-1.30); EST Glomerular Filtration Rate 63 mL/min (>60); Est Glom Filt Rate - Afr Amer 76 mL/min (>60); Estimated Creatinine Clearance 58.01 ml/min; Globulin 3.1 g/dL (2.2-4.2); Glucose 261 mg/dL (74-106); Potassium 3.2 mmol/L (3.5-5.1); Protein, Total 6.8 g/dL (6.4-8.2); Sodium Level 138 mmol/L (136-145)
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
[2020-11-10 20:55] VITALS: BP 109/59; PULSE 89; RESP 15; O2SAT 96
--- NOTE | 2020-11-10 21:01 | CM.ED ---
Social Work Telephone call to Juni Puri, Intake. Clinical information faxed. Pending review. Corby Ortiz MSW, CHERYLE
--- NOTE | 2020-11-10 21:38 | CM.ED ---
Social Work Telephone call from [facility]. Patient has been declined. Updated medical team and patient family. Crisis to continue to follow for placement. Corby Ortiz MSW, [id number]
--- NOTE | 2020-11-10 22:06 | ED.RN ---
FAXED PAPERWORK TO CRISIS AND CALLED THEM.
[2020-11-10 22:09] VITALS: BP 127/64; PULSE 66; RESP 12; O2SAT 98
--- NOTE | 2020-11-10 22:52 | ED.RN ---
ESE FROM [facility] CALLED, ASSURANCE HAD DECLINED THE PATIENT, ESE WAS GOING TO SEE ABOUT OHP FOR THE PATIENT
[2020-11-10 23:02] VITALS: BP 145/80; PULSE 80; RESP 17; O2SAT 96
[2020-11-11] VITALS (7 sets, daily range): BP systolic 129–189; BP diastolic 67–90; PULSE 60–66; RESP 11–16; O2SAT 97
--- NOTE | 2020-11-11 00:14 | ED.RN ---
PATIENT WAS ACCEPTED TO [facility] IN [place], PATIENT CAN NOT ARRIVE UNTIL AFTER 0730, SET UP RIDE WITH PHYSICIANS FOR 629.
[2020-11-11] MEDS: Rivastigmine Tartrate 1.5 MG Capsule PO (06:49)
[2020-11-11] MEDS: amLODIPine 5 MG Tablet PO (06:49)
[2020-11-11] MEDS: Divalproex Sodium 125 MG Tablet PO (06:49)
[2020-11-11] MEDS: Carbidopa/Levodopa/Entacapone 200 1 TAB PO (06:50)
--- NOTE | 2020-11-11 06:58 | ED.RN ---
[facility] AT PHYSICIANS; [facility] IS AT [facility]ATION [facility]ING AND ISSUE WITH THEIR DRUG BOX, IT WILL BE ANOTHER 30-45 MINUTES BEFORE THEY ARRIVE FOR TRANSPORT
== END 2020-11-11 08:03 ==
LOC: ED 19:37
PROVIDERS: Emergency Provider Emergency Medicine; PCP Family Medicine
DX: R45.1 Restlessness and agitation (principal)
CPT/HCPCS: 80053; 80307; 81001; 82077; 85025; 87426; 93005; 99285; P9612

== ENCOUNTER → 2021-07-06 05:00 | Outpatient (REF) | payer OTHER, SELFPAY ==
[2021-07-06 08:41] LABS: Hematocrit 40.2 % (40-54); Mean Corp Hgb Conc 32.3 g/dL (32-36); Mean Corpuscular Hgb 28.9 pg (27.0-32.0); Mean Corpuscular Volume 89.3 fL (80-94); Platelet Count 311 K/mm3 (150-450); RBC Distribution Width SD 49.6 fl (35.1-43.9); White Blood Count 5.9 K/mm3 (4.4-11.0)
[2021-07-06 09:07] LABS: AST(SGOT) 19 U/L (15-37); Alanine Aminotransfer ALT/SGPT 9 U/L (16-61); Albumin, Serum 3.2 g/dL (3.2-5.0); Alkaline Phosphatase 68 U/L (45-117); Anion Gap 6 (5-15); BUN 16 mg/dL (7-18); BUN/Creat Ratio 19.4 RATIO (10-20); Calcium,Total 8.5 mg/dL (8.5-10.1); Chloride 107 mmol/L (98-107); Creatinine, Serum 0.83 mg/dL (0.70-1.30); EST Glomerular Filtration Rate 99 mL/min (>60); Est Glom Filt Rate - Afr Amer 120 mL/min (>60); Globulin 3.2 g/dL (2.2-4.2); Glucose 102 mg/dL (74-106); Protein, Total 6.4 g/dL (6.4-8.2); Sodium Level 140 mmol/L (136-145)
== END ==
LOC: OLS.BROOKB 05:00
PROVIDERS: PCP Family Medicine; Visit Provider Family Medicine
DX: G20 Parkinson's disease (principal); I10 Essential (primary) hypertension
CPT/HCPCS: 36415; 80053; 85027

== ENCOUNTER 2021-07-16 08:09 | Emergency (ER) | payer OTHER, SELFPAY ==
[2021-07-16 08:10] VITALS: BP 137/79; PULSE 64; RESP 17; TEMP 36.5; O2SAT 99; BMI 26.4
--- NOTE | 2021-07-16 08:13 | CT_ITS ---
STUDY: CT BRAIN WITHOUT CONTRAST REASON FOR EXAM: Male, 66 years old. injury RADIATION DOSAGE (If Supplied By Facility): CTDIvol = ( 44.99 ) mGy, DLP = ( 812.98 ) mGycm TECHNIQUE: Transaxial CT imaging of the brain was performed without administration of intravenous contrast material. Individualized dose optimization techniques were used for this CT. COMPARISON: 10/27/2020 FINDINGS: Normal soft tissue structures. Normal calvarium. Normal size ventricles and extra-axial spaces for the patient''s age. Normal white matter tracts of the cerebral hemispheres. Normal basal ganglia and thalami. Normal brainstem. Normal cerebellum. There is no intracranial hemorrhage. There are no findings of an acute ischemic infarction. Normal visualized paranasal sinuses. CT/Brain/Head without Contrast IMPRESSION: Normal unenhanced CT scan of the brain. Electronically Signed: Luis Serrano MD at 9:06 EST Tel , Service support ,
--- NOTE | 2021-07-16 08:13 | CT_ITS ---
STUDY: CT CERVICAL SPINE WITHOUT CONTRAST REASON FOR EXAM: Male, 66 years old. injury RADIATION DOSAGE (If Supplied By Facility): CTDIvol = ( 20.61 ) mGy, DLP = ( 387.26 ) mGycm TECHNIQUE: High resolution transaxial imaging was performed without contrast material. Sagittal and coronal images were reconstructed. Individualized dose optimization techniques were used for this CT. COMPARISON: 03/12/2018 FINDINGS: Normal craniovertebral junction. There are degenerative changes of the anterior atlantoaxial articulation. Normal odontoid process. There is straightening of the normal cervical lordosis. Normal vertebral bodies and posterior osseous elements. C2-3: Normal endplates. Normal disc height and morphology. Normal central canal and intervertebral neuroforamina. C3-4: Normal endplates. Normal disc height and morphology. Normal central canal and intervertebral neuroforamina. C4-5: Normal endplates. Normal disc height and morphology. Normal central canal and intervertebral neuroforamina. C5-6: Mild broad disc osteophyte complex produces mild spinal stenosis but no neural foraminal stenosis. C6-7: Normal endplates. Normal disc height and morphology. Normal central canal and intervertebral neuroforamina. C7-T1: Normal endplates. Normal disc height and morphology. Normal central canal and intervertebral neuroforamina. Normal visualized soft tissue structures. CT/Spine Cervical without Contras IMPRESSION: No acute fracture or subluxation. Electronically Signed: Luis Serrano MD at 9:09 EST Tel , Service support ,
--- NOTE | 2021-07-16 08:14 | EDS_ITS ---
HPI History of Present Illness Chief Complaint: Laceration Informant: patient, EMS and SNF Narrative Narrative: 66-year-old male from nursing facility presents with a ear laceration. Patient states he got up taking a shower and went back to bed. States he was dreaming about a volcanic explosion was running from a rock. Tells me that he found himself waking up on the floor with pain behind his left ear. He is unsure how he got there. Patient is ANO x2 at baseline. Patient denies any other injuries. [facility] Medical History Anxiety Blepharitis Dysarthria and anarthria Dysphagia, oropharyngeal phase GERD (gastroesophageal reflux disease) Hallucinations Hypertension Major depression Parkinson disease Schizoaffective disorder, bipolar type Home Medications lorazepam 1 mg PO Q6H PRN 10/05/20 [History Last Taken 10/05/20] melatonin 10 mg PO QHS 10/05/20 [History Last Taken 10/04/20] pimavanserin 34 mg PO DAILY 10/05/20 [History Last Taken 10/05/20] pramipexole 1.5 mg PO TID 10/05/20 [History Last Taken 10/05/20] acetaminophen 650 mg PO Q4H PRN 10/27/20 [History Last Taken Unknown] bisacodyl 10 mg RC DAILY PRN 10/27/20 [History Last Taken Unknown] upccpztje-akixkopb-igoinpbowg 1 ea PO Q3H 10/27/20 [History Last Taken Unknown] divalproex 125 mg PO 4X/DAY 10/27/20 [History Last Taken Unknown] rasagiline 1 mg PO DAILY 10/27/20 [History Last Taken Unknown] rivastigmine tartrate 1.5 mg PO BID 10/27/20 [History Last Taken Unknown] amlodipine 5 mg PO DAILY 11/10/20 [History Last Taken Unknown] clonazepam 0.5 mg PO QHS 11/10/20 [History Last Taken Unknown] ibuprofen 200 mg PO Q4H PRN PRN 11/10/20 [History Last Taken Unknown] Allergy/AdvReac Type Severity Reaction Status Date / Time No Known Allergies Allergy Verified 11/10/20 19:15 Social History (Updated 07/16/21 @ 08:[address] Alex Carrizales, DO) Smoking Status: Unknown if ever smoked substance use type: does not use ROS ROS ED Constitutional Constitutional ED: Denies chills or weight loss Eyes Eyes: Denies change in vision or diplopia ENT ENT ED: Reports other Details: Laceration posterior left ear ; Denies ear pain, rhinorrhea or sore throat Cardiovascular Cardiovascular: Denies chest pain, orthopnea, palpitations or racing heartbeat Respiratory/Chest Respiratory/Chest: Denies cough, dyspnea or orthopnea Gastrointestinal Gastrointestinal: Denies abdominal pain, diarrhea, nausea or vomiting Genitourinary Genitourinary ED: Denies dysuria, hematuria or urinary frequency Musculoskeletal Musculoskeletal: Denies arthralgias or myalgias Integumentary Denies abscess or rash Neurologic Neurologic: Denies headache(s) or weakness Psychiatric Psychiatric: Denies anxiety, depression, suicidal ideation or suicidal thoughts Endocrine Endocrinology: Denies polydipsia, polyphagia or polyuria Allergic/Immunologic Allergic/Immunologic ED: Denies mouth swelling, tongue swelling or urticaria EXAM Physical Exam Const Vital Signs: 07/16/21 08:10 Temperature 97.7 F L Temperature Source Oral Pulse Rate 64 Respiratory Rate 17 Blood Pressure 137/79 H Blood Pressure Mean 98 Pulse Ox 99 Oxygen Delivery Method Room Air Positive well nourished and well developed General Appearance ED: well developed HEENT Reports normocephalic, head/scalp atraumatic, TM's clear and moist mucous membranes HEENT Narrative: Oral pharyngeal exam is normal. There is a 2 cm linear laceration posterior to the ear as it attaches to the skin. No active bleeding. trauma Tympanic Membrane ED: Yes TM's clear Eyes PERRL and EOMs intact bilaterally Neck no lymphadenopathy, supple and no JVD Resp normal respiratory effort and clear to auscultation bilaterally Cardio regular rate, regular rhythm and no murmurs GI normal to inspection, nondistended, normoactive bowel sounds and non-tender Palpation: soft Back/Spine no CVA tenderness and normal ROM Extremity normal to inspection General Extremety ED: Negative for edema General Extremity: Negative for edema Neuro CN's II-XII intact bilaterally Sensorium / Orientation: alert, oriented to person and oriented to place Motor Exam: strength 5/5 throughout Psych mental status grossly normal Mood & Affect: Negative for depressed or tearful Skin no rashes or lesions noted and no jaundice MDM MDM MDM Narrative Medical decision making narrative: CT of the head and cervical spine were negative for acute injury. Let was applied and after 20 minutes the wound was further locally anesthetized using 1% lidocaine. The wound was washed with Shur-Clens and explored. It was closed using a total of 4 simple erupted 5-0 Ethilon sutures. Patient tolerated procedure well. Stitches will need to be removed in 5 to 7 days. Patient will be discharged back to nursing facility Radiography Diagnostic Testing: Clinical Impression(s) from Imaging Studies Brain CT 07/16/21 08:13 IMPRESSION: Normal unenhanced CT scan of the brain. Electronically Signed: Luis Serrano MD at 9:06 EST Tel , Service support , Cervical Spine CT 07/16/21 08:13 IMPRESSION: No acute fracture or subluxation. Electronically Signed: Luis Serrano MD at 9:09 EST Tel , Service support , Discharge Plan Triage Chief Complaint: Laceration ED Provider: Alex Carrizales Dx/Rx/DC Orders Clinical Impression: Laceration of ear Instructions: ED Laceration: All Closures Prescriptions: No Action lorazepam 1 MG tablet 1 mg PO Q6H PRN (Reason: aggitation) RF: 0 pimavanserin 34 MG capsule 34 mg PO DAILY RF: 0 pramipexole 1.5 MG tablet extended release 24 hr 1.5 mg PO TID RF: 0 melatonin 10 MG tablet 10 mg PO QHS RF: 0 rivastigmine tartrate 1.5 MG capsule 1.5 mg PO BID RF: 0 acetaminophen 325 MG tablet 650 mg PO Q4H PRN (Reason: Pain 1-10 Or Fever) RF: 0 bisacodyl 10 MG suppository 10 mg RC DAILY PRN (Reason: Constipation) RF: 0 divalproex 125 MG tablet,delayed release (DR/EC) 125 mg PO 4X/DAY RF: 0 gajuwwgaj-vuocctix-dmcaxgkfxw 1 EACH tablet 1 ea PO Q3H RF: 0 rasagiline 1 MG tablet 1 mg PO DAILY RF: 0 clonazepam 0.5 MG tablet 0.5 mg PO QHS RF: 0 amlodipine 5 MG tablet 5 mg PO DAILY RF: 0 ibuprofen 200 MG tablet 200 mg PO Q4H PRN PRN (Reason: Pain 1-10 Or Fever) RF: 0 Primary Care Provider: Vivi Joe Referrals: Vivi Joe MD [Primary Care Provider] - 7 Days for suture removal Disposition Disposition: Home, Self Care
[2021-07-16] MEDS: Lidocaine 1% (20 ml mdv) 20 ML Vial INFILT (08:28)
[2021-07-16] MEDS: Lidocaine/Epi/Tetracaine 50 ML 1 APPLIC TOPICAL (08:28)
[2021-07-16 10:32] VITALS: PULSE 68; RESP 16; O2SAT 98
== END 2021-07-16 10:34 | disposition home or self-care (01) ==
PROVIDERS: Emergency Provider Emergency Medicine; PCP Family Medicine
DX: S01.312A Laceration without foreign body of left ear, initial encounter (principal); X58.XXXA Exposure to other specified factors, initial encounter; Y93.89 Activity, other specified; Y92.9 Unspecified place or not applicable; Y99.8 Other external cause status; I10 Essential (primary) hypertension; G20 Parkinson's disease; F25.0 Schizoaffective disorder, bipolar type; F41.9 Anxiety disorder, unspecified; Z79.899 Other long term (current) drug therapy
CPT/HCPCS: 12011; 70450; 72125; 99284

== ENCOUNTER 2021-08-20 22:12 | Emergency (ER) | payer OTHER, SELFPAY ==
[2021-08-20 22:13] VITALS: BP 158/78; PULSE 106; RESP 16; TEMP 36.6; O2SAT 94; BMI 25.7
--- NOTE | 2021-08-20 22:26 | CT_ITS ---
EXAM: CT HEAD WITHOUT INTRAVENOUS CONTRAST CLINICAL INDICATION: injury TECHNIQUE: Multiple axial images were obtained of the head without intravenous contrast. CTDIvol = ( 44.99 ) mGy, DLP = ( 846.73 ) mGycm This CT exam was performed using one or more of the following dose reduction techniques: automated exposure control, adjustment of the mA and/or kV according to patient size, and/or use of iterative reconstruction technique. This report was created using [employer] report generation technology. COMPARISON: None. FINDINGS: BRAIN AND EXTRA-AXIAL SPACES: Unremarkable. No intra- or extra-axial hemorrhage. No evidence of acute infarct. No intracranial mass or mass effect. There is preservation of the ascencio/white matter interface. Posterior fossa structures are unremarkable. Ventricles are appropriate for age. No hydrocephalus. Basal cisterns are patent. BONES/JOINTS: Unremarkable. No discrete lytic or blastic abnormalities. SINUSES: Unremarkable as visualized. Clear. MASTOID AIR CELLS: Unremarkable. Clear. ORBITS: Visualized globes, extraocular muscles, optic nerves and retrobulbar fat appear unremarkable. CT/Brain/Head without Contrast IMPRESSION: Negative head/brain CT without intravenous contrast. Electronically Signed: Tyshawn Cohen MD at 23:11 EST Tel , Service support ,
--- NOTE | 2021-08-20 22:27 | EX.ED.DYSGE1 ---
HPI History of Present Illness Chief Complaint: Fall Informant: patient Narrative Narrative: 66-year-old male presenting from shelter following a unwitnessed fall. Nursing staff informed EMS that they found him laying his head against the wall. No one witnessed the fall. They state that he has had an altered mental status but cannot really relay what that alteration is. He has a history of schizoaffective disorder and dementia. Patient is not speaking at this time. I do not see any outward signs of trauma. Unfortunately no significant report came with the patient from the shelter. After arrival on examination nursing was eventually able to speak with nursing at the shelter. He states that he was agitated earlier in the night and he fell trying to get away from them. So it was a witnessed fall and the altered mental status was aggression not decreased level of consciousness. [facility] Medical History Anxiety Blepharitis Dysarthria and anarthria Dysphagia, oropharyngeal phase GERD (gastroesophageal reflux disease) Hallucinations Hypertension Major depression Parkinson disease Schizoaffective disorder, bipolar type Home Medications pimavanserin 34 mg PO DAILY 10/05/20 [History Last Taken 10/05/20] pramipexole 1.5 mg PO TID 10/05/20 [History Last Taken 10/05/20] acetaminophen 650 mg PO Q4H PRN 10/27/20 [History Last Taken Unknown] bisacodyl 10 mg RC DAILY PRN 10/27/20 [History Last Taken Unknown] rasagiline 1 mg PO DAILY 10/27/20 [History Last Taken Unknown] rivastigmine tartrate 1.5 mg PO BID 10/27/20 [History Last Taken Unknown] amlodipine 10 mg PO DAILY 11/10/20 [History Last Taken Unknown] aripiprazole 5 mg PO QHS 08/20/21 [History Last Taken Unknown] entacapone 200 mg PO 5X/DAY 08/20/21 [History Last Taken Unknown] hydroxyzine HCl 25 mg PO BID 08/20/21 [History Last Taken Unknown] omeprazole 20 mg PO DAILY 08/20/21 [History Last Taken Unknown] oxcarbazepine 300 mg PO BID 08/20/21 [History Last Taken Unknown] trazodone 25 mg PO QHS 08/20/21 [History Last Taken Unknown] Allergy/AdvReac Type Severity Reaction Status Date / Time No Known Allergies Allergy Verified 08/20/21 22:20 Social History Smoking Status: Unknown if ever smoked substance use type: does not use ROS ROS ED Review of Systems ROS Unobtainable: due to mental status EXAM Physical Exam Const Vital Signs: 08/20/21 22:13 Temperature 98 F Temperature Source Axillary Pulse Rate 106 H Respiratory Rate 16 Blood Pressure 158/78 H Blood Pressure Mean 104 Pulse Ox 94 Oxygen Delivery Method Room Air Positive well nourished and well developed General Appearance ED: well developed HEENT Reports normocephalic, head/scalp atraumatic, TM's clear and moist mucous membranes Negative for trauma Tympanic Membrane ED: Yes TM's clear Eyes PERRL and EOMs intact bilaterally Neck no lymphadenopathy, supple and no JVD Resp normal respiratory effort and clear to auscultation bilaterally Cardio regular rate, regular rhythm and no murmurs GI normal to inspection, nondistended, normoactive bowel sounds and non-tender Palpation: soft Back/Spine no CVA tenderness and normal ROM Extremity normal to inspection General Extremety ED: Negative for edema General Extremity: Negative for edema Neuro CN's II-XII intact bilaterally and no sensory deficits noted Neuro Narrative: Nonverbal at this time Sensorium / Orientation: alert and orientation impaired Motor Exam: strength 5/5 throughout Skin no rashes or lesions noted and no wounds MDM MDM MDM Narrative Medical decision making narrative: CT the brain was negative. Because I was informed that the patient was having a depressed altered level of consciousness metabolic work-up was obtained. CBC was normal CMP normal. Urinalysis without overt infection my interpretation of the chest x-ray is no acute process. This point patient will be discharged back to shelter return if worsening or concerns Lab Data Labs: Laboratory Results - last 24 hr 08/20/21 08/20/21 08/20/21 22:30 22:30 23:05 WBC 6.1 RBC 4.59 L Hgb 13.3 Hct 40.6 MCV 88.5 MCH 29.0 MCHC 32.8 RDW Std Deviation 46.6 H RDW Coeff of Shira 14.5 Plt Count 282 MPV 10.0 Immature Gran % (Auto) 0.200 Neut % (Auto) 65.9 Lymph % (Auto) 19.8 [place] % (Auto) 10.1 H Eos % (Auto) 3.3 Baso % (Auto) 0.7 Absolute Neuts (auto) 4.0 Absolute Lymphs (auto) 1.20 Nucleated RBC % 0 Sodium 142 Potassium 3.3 L Chloride 109 H Carbon Dioxide 25.0 Anion Gap 8 BUN 24 H Creatinine 1.02 Estim Creat Clear Calc 67.50 Est GFR (MDRD) Af Amer 94 Est GFR (MDRD) Non-Af 78 BUN/Creatinine Ratio 23.5 H Glucose 114 H Calcium 8.6 Total Bilirubin 0.40 AST 27 ALT 34 Alkaline Phosphatase 82 Total Protein 6.9 Albumin 3.3 Globulin 3.6 Albumin/Globulin Ratio 0.9 Urine Color Yellow Urine Clarity Clear Urine pH 5.0 Ur Specific [place] 1.020 Urine Protein 15 H Urine Glucose (UA) Normal Urine Ketones 5 H Urine Occult Blood 10 H Urine Nitrite Negative Urine Bilirubin Negative Urine Urobilinogen Normal Ur Leukocyte Esterase 25 H Urine RBC 0 SEEN Urine WBC 0-5 SEEN Ur Squamous Epith Cells 0 SEEN Urine Bacteria 1+ Urine Mucus 2+ Radiography Diagnostic Testing: Clinical Impression(s) from Imaging Studies Brain CT 08/20/21 22:26 IMPRESSION: Negative head/brain CT without intravenous contrast. Electronically Signed: Tyshawn Cohen MD at 23:11 EST Tel , Service support , Chest X-Ray 08/20/21 22:43 IMPRESSION: Heterogeneous airspace disease involving the retrocardiac region of the left lower lobe. Consider atelectasis versus infiltrate. Electronically Signed: Tyshawn Cohen MD at 22:56 EST Tel , Service support , Discharge Plan Triage Chief Complaint: Fall ED Provider: Alex Carrizales Dx/Rx/DC Orders Clinical Impression: Head injury, Fall, Dementia Instructions: ED Head Injury (Adult) Prescriptions: No Action pimavanserin 34 MG capsule 34 mg PO DAILY RF: 0 pramipexole 1.5 MG tablet extended release 24 hr 1.5 mg PO TID RF: 0 rivastigmine tartrate 1.5 MG capsule 1.5 mg PO BID RF: 0 acetaminophen 325 MG tablet 650 mg PO Q4H PRN (Reason: Pain 1-10 Or Fever) RF: 0 bisacodyl 10 MG suppository 10 mg RC DAILY PRN (Reason: Constipation) RF: 0 rasagiline 1 MG tablet 1 mg PO DAILY RF: 0 amlodipine 5 MG tablet 10 mg PO DAILY RF: 0 trazodone 50 mg tablet 25 mg PO QHS RF: 0 oxcarbazepine 300 mg tablet 300 mg PO BID RF: 0 entacapone 200 mg tablet 200 mg PO 5X/DAY RF: 0 omeprazole 20 mg capsule,delayed release(DR/EC) 20 mg PO DAILY RF: 0 hydroxyzine HCl 25 mg tablet 25 mg PO BID RF: 0 aripiprazole 5 mg tablet 5 mg PO QHS RF: 0 Primary Care Provider: Vivi Joe Referrals: Vivi Joe MD [Primary Care Provider] - As Needed Disposition Disposition: Halfway Facility Discharge Location: [facility]
[2021-08-20 22:41] LABS: Basophil# 0.04 X10^3/uL; Basophil% 0.7 % (0-1); Eosinophils% 3.3 % (0-5); Hematocrit 40.6 % (40-54); Hemoglobin 13.3 g/dL (13.0-16.5); Lymphocyte % 19.8 % (19-41); Mean Corp Hgb Conc 32.8 g/dL (32-36); Mean Corpuscular Volume 88.5 fL (80-94); Monocyte# 0.61 X10^3/uL; Monocyte% 10.1 % (0-10); NRBC Flagged by Analyzer 0 % (0-5); Neutrophil % 65.9 % (47-70); Platelet Count 282 K/mm3 (150-450); RBC Distribution Width CV 14.5 % (11.6-14.6); RBC Distribution Width SD 46.6 fl (35.1-43.9); Red Blood Count 4.59 M/mm3 (4.6-6.2); White Blood Count 6.1 K/mm3 (4.4-11.0)
--- NOTE | 2021-08-20 22:43 | RAD_ITS ---
EXAM: XR CHEST, 1 VIEW CLINICAL INDICATION: altered mental status TECHNIQUE: Frontal view of the chest. This report was created using [employer] report generation technology. COMPARISON: Comparison with 10/27/2020 chest radiography. FINDINGS: LUNGS AND PLEURAL SPACES: Low lung volumes with subsegmental atelectasis at the lung bases. No large pleural effusions. No pneumothorax. Heterogeneous airspace disease involving the retrocardiac region of the left lower lobe. Consider atelectasis versus infiltrate. HEART: Unremarkable. Cardiac silhouette not enlarged. MEDIASTINUM: Central airways and mediastinal contour are unremarkable. BONES/JOINTS: No suspicious lytic or sclerotic lesions of bone. SOFT TISSUES: Unremarkable. RAD/Chest 1 View (Portable) IMPRESSION: Heterogeneous airspace disease involving the retrocardiac region of the left lower lobe. Consider atelectasis versus infiltrate. Electronically Signed: Tyshawn Cohen MD at 22:56 EST Tel , Service support ,
[2021-08-20 23:04] LABS: ALB/GLOB Ratio 0.9 RATIO (0.9-2.4); AST(SGOT) 27 U/L (15-37); Alanine Aminotransfer ALT/SGPT 34 U/L (16-61); Albumin, Serum 3.3 g/dL (3.2-5.0); Alkaline Phosphatase 82 U/L (45-117); Anion Gap 8 (5-15); BUN 24 mg/dL (7-18); BUN/Creat Ratio 23.5 RATIO (10-20); Calcium,Total 8.6 mg/dL (8.5-10.1); Chloride 109 mmol/L (98-107); Creatinine, Serum 1.02 mg/dL (0.70-1.30); EST Glomerular Filtration Rate 78 mL/min (>60); Est Glom Filt Rate - Afr Amer 94 mL/min (>60); Globulin 3.6 g/dL (2.2-4.2); Glucose 114 mg/dL (74-106); Potassium 3.3 mmol/L (3.5-5.1); Protein, Total 6.9 g/dL (6.4-8.2); Sodium Level 142 mmol/L (136-145)
[2021-08-20 23:12] LABS: Red Blood Cells-Urine 0 SEEN /hpf (0-5); Squamous Epithelial Cells - UA 0 SEEN /hpf (0-5)
[2021-08-20 23:14] LABS: Color, Urine Yellow (Yellow); Glucose, Dipstick Normal (Normal); Ketone-Dipstick 5 mg/dl (Negative); Leukocyte Esterase-Dipstick 25 /ul (Negative); Nitrite-Dipstick Negative (Negative); Occult Blood-Urine 10 /ul (Negative); Protein-Dipstick 15 mg/dl (Negative); Urine Bilirubin Dipstick Negative (Negative); Urine Clarity Clear (Clear); Urine Urobilinogen Normal (Normal)
[2021-08-20 23:31] LABS: Bacteria 1+ /hpf (None Seen); Mucous, Urine 2+ /hpf (<or=2+); White Blood Cells 0-5 SEEN /hpf (0-5)
[2021-08-20 23:56] VITALS: PULSE 79; RESP 18; O2SAT 97
== END 2021-08-21 00:24 | disposition skilled nursing facility (03) ==
PROVIDERS: Emergency Provider Emergency Medicine; PCP Family Medicine
DX: S09.90XA Unspecified injury of head, initial encounter (principal); W19.XXXA Unspecified fall, initial encounter; Y93.9 Activity, unspecified; Y92.129 Unspecified place in nursing home as the place of occurrence of the external cause; Y99.9 Unspecified external cause status; I10 Essential (primary) hypertension; K21.9 Gastro-esophageal reflux disease without esophagitis; G20 Parkinson's disease; F02.80 Dementia in other diseases classified elsewhere, unspecified severity, without behavioral disturbance, psychotic disturbance, mood disturbance, and anxiety; F25.0 Schizoaffective disorder, bipolar type; F41.9 Anxiety disorder, unspecified; Z79.899 Other long term (current) drug therapy
CPT/HCPCS: 70450; 71045; 80053; 81001; 85025; 99283

== ENCOUNTER → 2021-08-22 11:15 | Outpatient (REF) | payer OTHER, SELFPAY ==
[2021-08-22 11:15] LABS: Mucous, Urine 0 SEEN /hpf (<or=2+); Red Blood Cells-Urine 0 SEEN /hpf (0-5); White Blood Cells 0 SEEN /hpf (0-5)
[2021-08-22 11:40] LABS: Color, Urine Amber (Yellow); Glucose, Dipstick Normal (Normal); Ketone-Dipstick Negative (Negative); Leukocyte Esterase-Dipstick Negative /ul (Negative); Nitrite-Dipstick Negative (Negative); Occult Blood-Urine 10 /ul (Negative); Protein-Dipstick 15 mg/dl (Negative); Specific Gravity, Urine 1.015 (1.002-1.030); Urine Bilirubin Dipstick Negative (Negative); Urine Clarity Sl. Cloudy (Clear); Urine Urobilinogen Normal (Normal)
[2021-08-22 11:55] LABS: Bacteria RARE /hpf (None Seen); Calcium Oxalate Crystals Ur 1+ /hpf (<or=2+); Squamous Epithelial Cells - UA 0-5 SEEN /hpf (0-5)
== END ==
LOC: OLS.BROOKB 11:15
PROVIDERS: PCP Family Medicine; Visit Provider Family Medicine
DX: R41.0 Disorientation, unspecified (principal)
CPT/HCPCS: 81001; 87086; 87088

== ENCOUNTER → 2021-09-28 | Outpatient (REF) | payer OTHER, SELFPAY ==
[2021-09-28 08:13] LABS: Hematocrit 42.1 % (40-54); Mean Corp Hgb Conc 33.3 g/dL (32-36); Mean Corpuscular Hgb 28.7 pg (27.0-32.0); Mean Corpuscular Volume 86.4 fL (80-94); Mean Platelet Vol. 9.7 fl (6.2-12.0); Platelet Count 392 K/mm3 (150-450); RBC Distribution Width CV 13.3 % (11.6-14.6); RBC Distribution Width SD 42.5 fl (35.1-43.9); Red Blood Count 4.87 M/mm3 (4.6-6.2); White Blood Count 6.5 K/mm3 (4.4-11.0)
[2021-09-28 08:48] LABS: AST(SGOT) 26 U/L (15-37); Alanine Aminotransfer ALT/SGPT 16 U/L (16-61); Albumin, Serum 3.7 g/dL (3.2-5.0); Alkaline Phosphatase 104 U/L (45-117); Anion Gap 7 (5-15); BUN 25 mg/dL (7-18); BUN/Creat Ratio 22.5 RATIO (10-20); Calcium,Total 9.1 mg/dL (8.5-10.1); Chloride 109 mmol/L (98-107); Creatinine, Serum 1.11 mg/dL (0.70-1.30); EST Glomerular Filtration Rate 71 mL/min (>60); Est Glom Filt Rate - Afr Amer 85 mL/min (>60); Globulin 3.6 g/dL (2.2-4.2); Glucose 114 mg/dL (74-106); Potassium 3.7 mmol/L (3.5-5.1); Protein, Total 7.3 g/dL (6.4-8.2); Sodium Level 141 mmol/L (136-145)
== END | disposition home or self-care (01) ==
LOC: OLS.BROOKB 05:00
PROVIDERS: PCP Family Medicine; Visit Provider Family Medicine
DX: F25.0 Schizoaffective disorder, bipolar type (principal); F33.9 Major depressive disorder, recurrent, unspecified; R41.0 Disorientation, unspecified
CPT/HCPCS: 36415; 80053; 85027

== ENCOUNTER 2021-11-19 16:20 | Outpatient (REF) | payer OTHER, SELFPAY ==
[2021-11-20 08:55] LABS: Color, Urine Amber (Yellow); Glucose, Dipstick Normal (Normal); Ketone-Dipstick 5 mg/dl (Negative); Leukocyte Esterase-Dipstick 25 /ul (Negative); Nitrite-Dipstick Negative (Negative); Occult Blood-Urine 10 /ul (Negative); Protein-Dipstick 15 mg/dl (Negative); Urine Bilirubin Dipstick Negative (Negative); Urine Clarity Clear (Clear); Urine Urobilinogen Normal (Normal)
== END 2021-11-19 23:59 | disposition home or self-care (01) ==
LOC: OLS.BROOKB 16:20
PROVIDERS: PCP Family Medicine; Visit Provider Family Medicine
DX: R53.83 Other fatigue (principal); R41.0 Disorientation, unspecified
CPT/HCPCS: 81002; 87086; 87088

== ENCOUNTER 2021-11-28 14:17 | Emergency (ER) | payer OTHER, SELFPAY ==
[2021-11-28 14:38] VITALS: BP 125/61; PULSE 67; RESP 17; TEMP 37.1; O2SAT 95; BMI 22.4
[2021-11-28 14:44] VITALS: BP 125/61; PULSE 70; RESP 16; TEMP 37.1; O2SAT 98
--- NOTE | 2021-11-28 14:59 | EKG12_ITS ---
Test Reason : ALT LOC Blood Pressure : / mmHG Vent. Rate : 064 BPM Atrial Rate : 064 BPM P-R Int : 164 ms QRS Dur : 088 ms QT Int : 404 ms P-R-T Axes : 037 -04 -08 degrees QTc Int : 416 ms Normal sinus rhythm Nonspecific T wave abnormality Abnormal ECG Confirmed by TAMMY ALMODOVAR, CAROLYN ([id number]), field map editor SHIRAZ DIETRICH ([id number]) on 11/29/2021 1:40:31 PM Referred By: Confirmed By:CAROLYN MUNOZ MD
--- NOTE | 2021-11-28 14:59 | CT_ITS ---
STUDY: CT BRAIN WITHOUT CONTRAST REASON FOR EXAM: Male, 66 years old. altered mental status RADIATION DOSAGE (If Supplied By Facility): CTDIvol = ( 44.99 ) mGy, DLP = ( 796.11 ) mGycm TECHNIQUE: Transaxial CT imaging of the brain was performed without administration of intravenous contrast material. Individualized dose optimization techniques were used for this CT. COMPARISON: 08/20/2021 FINDINGS: Normal soft tissue structures. Normal calvarium. Normal size ventricles and extra-axial spaces for the patient''s age. Normal white matter tracts of the cerebral hemispheres. Normal basal ganglia and thalami. Normal brainstem. Normal cerebellum. There is no intracranial hemorrhage. There are no findings of an acute ischemic infarction. Normal visualized paranasal sinuses. CT/Brain/Head without Contrast IMPRESSION: Normal unenhanced CT scan of the brain. Electronically Signed: Dilhsad Ham MD ([place]) at 16:02 EDT ,
--- NOTE | 2021-11-28 15:01 | RAD_ITS ---
STUDY: X-RAY - RIGHT KNEE REASON FOR EXAM: Male, 66 years old. PATIENT FELL TO KNEES THIS MORNING AND WAS UNABLE TO GET UP. DECREASED ALERTNESS. PRISON REPORTED ''DROOLING'', ''SIDE LEANING'' T ALTERED MENTAL STATUS. NO LAST KNOWN WELL TECHNIQUE: 4 view(s) of the knee. COMPARISON: None. FINDINGS: Normal visualized distal femur. Normal visualized proximal tibia and fibula. Normal proximal tibiofibular articulation. Normal medial femorotibial compartment. Normal lateral femorotibial compartment. Normal patellofemoral articulation. There is no demonstrated joint effusion. The soft tissue structures are unremarkable. RAD/Knee 4 or More Views IMPRESSION: No fracture or malalignment. Electronically Signed: Dilshad Ham MD ([place]) at 16:16 EDT ,
--- NOTE | 2021-11-28 15:01 | RAD_ITS ---
STUDY: X-RAY - PELVIS REASON FOR EXAM: Male, 66 years old. PATIENT FELL TO KNEES THIS MORNING AND WAS UNABLE TO GET UP. DECREASED ALERTNESS. RETIREMENT REPORTED ''DROOLING'', ''SIDE LEANING'' T ALTERED MENTAL STATUS. NO LAST KNOWN WELL TECHNIQUE: One view of the pelvis was obtained. COMPARISON: None. FINDINGS: There is a non-specific bowel gas pattern. Normal visualized soft tissue structures. Normal bilateral iliac wings, sacroiliac joints and visualized sacrum. Normal visualized bilateral superior and inferior pubic rami. Normal pubic symphysis. Normal ischial tuberosities. Normal visualized right femoral head. Normal right acetabulum. Normal right hip joint. Normal visualized left femoral head. Normal left acetabulum. Normal left hip joint. RAD/Pelvis 1 or 2 Views IMPRESSION: No fracture or malalignment. Electronically Signed: Dilshad Ham MD ([place]) at 16:16 EDT ,
--- NOTE | 2021-11-28 15:01 | EDS_ITS ---
HPI History of Present Illness Chief Complaint: Alt LOC Narrative Narrative: 66-year-old male presenting for reported fall that was unwitnessed. He lives at a [facility]. Currently unclear what his baseline is. He is mumbling. He is unable to give me a medical history. He has either food or dried vomit in his penaloza. [facility] Medical History Anxiety Blepharitis Cataracts, bilateral COVID Difficulty walking Dysarthria and anarthria Dysphagia, oropharyngeal phase GERD (gastroesophageal reflux disease) Hallucinations Hypertension Major depression Parkinson disease Pneumonia due to COVID-19 virus Schizoaffective disorder, bipolar type Home Medications pramipexole 1.5 mg PO TID 10/05/20 [History Last Taken 10/05/20] acetaminophen 650 mg PO Q4H PRN 10/27/20 [History Last Taken Unknown] rasagiline 1 mg PO DAILY 10/27/20 [History Last Taken Unknown] rivastigmine tartrate 6 mg PO BID 10/27/20 [History Last Taken Unknown] amlodipine 10 mg PO DAILY 11/10/20 [History Last Taken Unknown] aripiprazole 10 mg PO QHS 08/20/21 [History Last Taken Unknown] omeprazole 20 mg PO DAILY 08/20/21 [History Last Taken Unknown] oxcarbazepine 300 mg PO BID 08/20/21 [History Last Taken Unknown] trazodone 25 mg PO QHS 08/20/21 [History Last Taken Unknown] Lactobacillus acidophilus [Probiotic] 10,000 mmu cells PO DAILY 11/28/21 [History Last Taken Unknown] aripiprazole 2.5 mg PO QHS 11/28/21 [History Last Taken Unknown] vuyzpnjpd-stgjigrw-kteylfvdsp 1 tab PO 5X/DAY 11/28/21 [History Last Taken Unknown] lorazepam 0.5 mg PO BID PRN 11/28/21 [History Last Taken Unknown] menthol-zinc oxide [Calmoseptine] 1 applic TOPICAL TID 11/28/21 [History Last Taken Unknown] polyvinyl alcohol [Artificial Tears Plus] 2 drp LEFT EYE 4X/DAY PRN PRN 11/28/21 [History Last Taken Unknown] sennosides [senna] 8.6 mg PO BID PRN 11/28/21 [History Last Taken Unknown] sulfamethoxazole-trimethoprim [Bactrim DS] 1 tab PO BID 11/28/21 [History Last Taken Unknown] Allergy/AdvReac Type Severity Reaction Status Date / Time No Known Allergies Allergy Verified 11/28/21 14:48 Social History Smoking Status: Unknown if ever smoked substance use type: does not use ROS ROS ED Review of Systems ROS Unobtainable: due to mental condition and due to mental status EXAM Physical Exam Const Vital Signs: 11/28/21 14:38 11/28/21 14:44 11/28/21 14:46 Temperature 98.8 F 98.8 F Temperature Source Oral Oral Pulse Rate 67 70 Respiratory Rate 17 16 Respiratory Effort Normal Non-Labored Respiratory Pattern Normal Blood Pressure 125/61 H 125/61 H Blood Pressure Mean 82 82 Pulse Ox 95 98 Oxygen Delivery Method Room Air Room Air 11/28/21 16:42 11/28/21 17:05 Temperature 98.1 F Temperature Source Temporal Pulse Rate 72 71 Respiratory Rate 17 18 Respiratory Effort Respiratory Pattern Blood Pressure 114/75 122/70 H Blood Pressure Mean 88 87 Pulse Ox 96 Oxygen Delivery Method Room Air Positive well nourished and unkempt General Appearance ED: unkempt and NAD HEENT Reports dry mucous membranes Negative for trauma Mouth ED: Yes dry mucous membranes Mouth: dry mucous membranes Eyes PERRL and EOMs intact bilaterally General Eye ED: Negative for pale conjunctiva or scleral icterus Neck supple Chest Wall Chest Narrative: No apparent tenderness. Resp normal respiratory effort and clear to auscultation bilaterally Cardio regular rate and regular rhythm GI normal to inspection, nondistended, normoactive bowel sounds GI Narrative: No apparent tenderness Neuro Motor Exam: general weakness Psych Psych Narrative: Confused Appearance: unkempt Skin Skin Narrative: Superficial abrasions over the right patella. No obvious deformity. Patient is not able to follow commands but I am able to range his knee on the right. Pelvis appears stable. No deformities of the hips bilaterally. MDM MDM MDM Narrative Medical decision making narrative: Patient presenting with altered mental status. Is unclear what his baseline is however he does have a history of dementia and previously noted ER notes show that he does not talk much. I obtained blood work and his CBC and CMP are unremarkable. Ammonia within normal limits. EKG on my interpretation shows a normal sinus rhythm without sign of ischemic change. Chest x-ray my interpretation shows no acute cardiopulmonary process and the radiologist does agree. High-sensitivity troponin is less than 3. Urinalysis negative for infection but does show some ketones. X-ray of the pelvis and the right knee on my interpretation show no acute fractures or subluxation. The radiologist agrees with this as well. CT of the brain is negative for any acute findings. Overall the patient has normal vital signs and a fairly normal work-up. I discussed this with his daughter and that we would be transferring him back to his facility. She was amenable to this plan. Impression: 1. Altered mental status 2. Fall 3. Right knee contusion 4. Right knee abrasion 5. History dementia Lab Data Labs: Laboratory Results - last 24 hr 11/28/21 11/28/21 11/28/21 15:35 15:35 15:35 WBC 6.8 RBC 4.93 Hgb 14.6 Hct 43.2 MCV 87.6 MCH 29.6 MCHC 33.8 RDW Std Deviation 47.1 H RDW Coeff of Shira 14.6 Plt Count 295 MPV 10.2 Immature Gran % (Auto) 0.100 Neut % (Auto) 75.9 H Lymph % (Auto) 12.7 L Schleicher % (Auto) 9.8 Eos % (Auto) 0.6 Baso % (Auto) 0.9 Absolute Neuts (auto) 5.1 Absolute Lymphs (auto) 0.86 Nucleated RBC % 0 Sodium 137 Potassium 4.4 Chloride 105 Carbon Dioxide 28.0 Anion Gap 4 L BUN 20 H Creatinine 1.07 Estim Creat Clear Calc 63.18 Est GFR (MDRD) Af Amer 89 Est GFR (MDRD) Non-Af 74 BUN/Creatinine Ratio 18.7 Glucose 90 Calcium 9.1 Total Bilirubin 0.80 AST 15 ALT 19 Alkaline Phosphatase 72 Ammonia 25.0 Troponin I High Sens < 3 L Total Protein 7.2 Albumin 4.2 Globulin 3.0 Albumin/Globulin Ratio 1.4 Urine Color Urine Clarity Urine pH Ur Specific [place] Urine Protein Urine Glucose (UA) Urine Ketones Urine Occult Blood Urine Nitrite Urine Bilirubin Urine Urobilinogen Ur Leukocyte Esterase Urine RBC Urine WBC Ur Squamous Epith Cells Urine Bacteria Urine Mucus 11/28/21 16:39 WBC RBC Hgb Hct MCV MCH MCHC RDW Std Deviation RDW Coeff of Shira Plt Count MPV Immature Gran % (Auto) Neut % (Auto) Lymph % (Auto) Schleicher % (Auto) Eos % (Auto) Baso % (Auto) Absolute Neuts (auto) Absolute Lymphs (auto) Nucleated RBC % Sodium Potassium Chloride Carbon Dioxide Anion Gap BUN Creatinine Estim Creat Clear Calc Est GFR (MDRD) Af Amer Est GFR (MDRD) Non-Af BUN/Creatinine Ratio Glucose Calcium Total Bilirubin AST ALT Alkaline Phosphatase Ammonia Troponin I High Sens Total Protein Albumin Globulin Albumin/Globulin Ratio Urine Color Yellow Urine Clarity Clear Urine pH 6.5 Ur Specific [place] 1.020 Urine Protein Negative Urine Glucose (UA) Normal Urine Ketones 150 A* Urine Occult Blood 10 H Urine Nitrite Negative Urine Bilirubin Negative Urine Urobilinogen Normal Ur Leukocyte Esterase 25 H Urine RBC 0 SEEN Urine WBC 0-5 SEEN Ur Squamous Epith Cells 0 SEEN Urine Bacteria 0 SEEN Urine Mucus 1+ Radiography Diagnostic Testing: Clinical Impression(s) from Imaging Studies Brain CT 11/28/21 14:59 IMPRESSION: Normal unenhanced CT scan of the brain. Electronically Signed: Dilshad Ham MD ([place]) at 16:02 EDT , Knee X-Ray 11/28/21 15:01 IMPRESSION: No fracture or malalignment. Electronically Signed: Dilshad Ham MD ([place]oks) at 16:16 EDT , Pelvis X-Ray 11/28/21 15:01 IMPRESSION: No fracture or malalignment. Electronically Signed: Dilshad Ham MD ([place]oks) at 16:16 EDT , Chest X-Ray 11/28/21 15:55 IMPRESSION: Nonacute portable x-ray examination of the chest. Electronically Signed: Dilshad Ham MD ([place]) at 16:15 EDT , Discharge Plan Triage Chief Complaint: Alt LOC ED Provider: Shawn Sanchez Dx/Rx/DC Orders Instructions: ED DEMENTIA Alzheimer's Prescriptions: No Action pramipexole 1.5 MG tablet extended release 24 hr 1.5 mg PO TID RF: 0 rivastigmine tartrate 1.5 MG capsule 6 mg PO BID RF: 0 acetaminophen 325 MG tablet 650 mg PO Q4H PRN (Reason: Pain 1-10 Or Fever) RF: 0 rasagiline 1 MG tablet 1 mg PO DAILY RF: 0 amlodipine 5 MG tablet 10 mg PO DAILY RF: 0 trazodone 50 mg tablet 25 mg PO QHS RF: 0 oxcarbazepine 300 mg tablet 300 mg PO BID RF: 0 omeprazole 20 mg capsule,delayed release(DR/EC) 20 mg PO DAILY RF: 0 aripiprazole 5 mg tablet 10 mg PO QHS RF: 0 sennosides [senna] 8.6 mg Tablet 8.6 mg PO BID PRN (Reason: Constipation) RF: 0 polyvinyl alcohol [Artificial Tears Plus] 1.4 % Drops 2 drp LEFT EYE 4X/DAY PRN PRN (Reason: dry eye) RF: 0 sulfamethoxazole-trimethoprim [Bactrim DS] 800-160 mg Tablet 1 tab PO BID RF: 0 lorazepam 0.5 mg Tablet 0.5 mg PO BID PRN (Reason: Anxiety) RF: 0 aripiprazole 5 mg Tablet 2.5 mg PO QHS RF: 0 iwwxydwjb-pkocqdha-awsnxlcduz 50-200-200 mg Tablet 1 tab PO 5X/DAY RF: 0 menthol-zinc oxide [Calmoseptine] 0.44-20.6 % Ointment 1 applic TOPICAL TID RF: 0 Probiotic 10 billion cell Capsule 10,000 mmu cells PO DAILY RF: 0 Primary Care Provider: Vivi Joe Referrals: Vivi Joe MD [Primary Care Provider] - Disposition Disposition: Home, Self Care
--- NOTE | 2021-11-28 15:33 | ED.RN ---
NO STROKE TEAM CALLED IN TRIAGE WHEN PT PRESENTED PER DR THOMAS.
[2021-11-28 15:48] LABS: Absolute Lymphocyte Count 0.86 X10^3/uL (0.83-4.51); Absolute Neutrophil Count 5.1 X10^3/uL (2.0-7.7); Basophil# 0.06 X10^3/uL; Basophil% 0.9 % (0-1); Eosinophil# 0.04 X10^3/uL; Eosinophils% 0.6 % (0-5); Hematocrit 43.2 % (40-54); Hemoglobin 14.6 g/dL (13.0-16.5); Lymphocyte # 0.86 X10^3/ul (0.83-4.51); Lymphocyte % 12.7 % (19-41); Mean Corp Hgb Conc 33.8 g/dL (32-36); Mean Corpuscular Hgb 29.6 pg (27.0-32.0); Mean Corpuscular Volume 87.6 fL (80-94); Mean Platelet Vol. 10.2 fl (6.2-12.0); Monocyte# 0.66 X10^3/uL; Monocyte% 9.8 % (0-10); NRBC Flagged by Analyzer 0 % (0-5); Neutrophil # 5.12 X10^3/uL (2.7-7.7); Neutrophil % 75.9 % (47-70); Platelet Count 295 K/mm3 (150-450); RBC Distribution Width CV 14.6 % (11.6-14.6); RBC Distribution Width SD 47.1 fl (35.1-43.9); Red Blood Count 4.93 M/mm3 (4.6-6.2); White Blood Count 6.8 K/mm3 (4.4-11.0)
--- NOTE | 2021-11-28 15:55 | RAD_ITS ---
STUDY: X-RAY CHEST REASON FOR EXAM: Male, 66 years old. PATIENT FELL TO KNEES THIS MORNING AND WAS UNABLE TO GET UP. DECREASED ALERTNESS. INTERMEDIATE REPORTED ''DROOLING'', ''SIDE LEANING'' T ALTERED MENTAL STATUS. NO LAST KNOWN WELL TECHNIQUE: AP COMPARISON: None. FINDINGS: EKG leads project over the chest. The lungs are clear and expanded. There is no demonstrated pleural abnormality. Normal size heart. Normal mediastinum and mary anne. Normal visualized pulmonary arteries. There is atherosclerotic tortuosity of the aortic arch and descending thoracic aorta. Normal visualized thoracic spine. Normal visualized ribs, clavicles, and shoulders. There is no demonstrated abnormality of the visualized soft tissue structures of the upper abdomen. RAD/Chest 1 View (Portable) IMPRESSION: Nonacute portable x-ray examination of the chest. Electronically Signed: Dilshad Ham MD ([place]) at 16:15 EDT ,
[2021-11-28 16:12] LABS: ALB/GLOB Ratio 1.4 RATIO (0.9-2.4); AST(SGOT) 15 U/L (15-37); Alanine Aminotransfer ALT/SGPT 19 U/L (16-61); Albumin, Serum 4.2 g/dL (3.2-5.0); Alkaline Phosphatase 72 U/L (45-117); Anion Gap 4 (5-15); BUN 20 mg/dL (7-18); BUN/Creat Ratio 18.7 RATIO (10-20); Calcium,Total 9.1 mg/dL (8.5-10.1); Chloride 105 mmol/L (98-107); Creatinine, Serum 1.07 mg/dL (0.70-1.30); EST Glomerular Filtration Rate 74 mL/min (>60); Est Glom Filt Rate - Afr Amer 89 mL/min (>60); Estimated Creatinine Clearance 63.18 ml/min; Glucose 90 mg/dL (74-106); Potassium 4.4 mmol/L (3.5-5.1); Protein, Total 7.2 g/dL (6.4-8.2); Sodium Level 137 mmol/L (136-145); Troponin-I HS < 3 pg/mL (3.0-78.0)
[2021-11-28 16:42] VITALS: BP 114/75; PULSE 72; RESP 17; TEMP 36.7; O2SAT 96
[2021-11-28 16:44] LABS: Red Blood Cells-Urine 0 SEEN /hpf (0-5); Squamous Epithelial Cells - UA 0 SEEN /hpf (0-5)
[2021-11-28 16:59] LABS: Color, Urine Yellow (Yellow); Glucose, Dipstick Normal (Normal); Leukocyte Esterase-Dipstick 25 /ul (Negative); Nitrite-Dipstick Negative (Negative); Occult Blood-Urine 10 /ul (Negative); Protein-Dipstick Negative (Negative); Urine Bilirubin Dipstick Negative (Negative); Urine Clarity Clear (Clear); Urine Urobilinogen Normal (Normal); Urine pH 6.5 (5.0 - 8.0)
[2021-11-28 17:02] LABS: Ketone-Dipstick 150 mg/dl (Negative)
[2021-11-28 17:05] VITALS: BP 122/70; PULSE 71; RESP 18
[2021-11-28 17:09] LABS: Bacteria 0 SEEN /hpf (None Seen); Mucous, Urine 1+ /hpf (<or=2+); White Blood Cells 0-5 SEEN /hpf (0-5)
[2021-11-28 18:10] VITALS: BP 136/72; PULSE 71; RESP 18; O2SAT 97
[2021-11-28 18:11] VITALS: RESP 16
== END 2021-11-28 18:41 | disposition skilled nursing facility (03) ==
PROVIDERS: Emergency Provider Student in an Organized Health Care Education/Training Program; PCP Family Medicine; Visit Provider Student in an Organized Health Care Education/Training Program
DX: S80.01XA Contusion of right knee, initial encounter (principal); G31.83 Neurocognitive disorder with Lewy bodies; F02.80 Dementia in other diseases classified elsewhere, unspecified severity, without behavioral disturbance, psychotic disturbance, mood disturbance, and anxiety; S80.211A Abrasion, right knee, initial encounter; W19.XXXA Unspecified fall, initial encounter; Y92.129 Unspecified place in nursing home as the place of occurrence of the external cause; I10 Essential (primary) hypertension; K21.9 Gastro-esophageal reflux disease without esophagitis; Z79.899 Other long term (current) drug therapy; Z86.16 Personal history of COVID-19
CPT/HCPCS: 70450; 71045; 72170; 73564; 80053; 81001; 82140; 84484; 85025; 93005; 99285; P9612; A4216

== ENCOUNTER 2021-11-30 04:00 | Outpatient (REF) | payer OTHER, SELFPAY ==
[2021-11-30 10:07] LABS: Carbamazepine (Tegretol) < 0.5 ug/mL (4.0-12.0)
== END 2021-11-30 23:59 | disposition home or self-care (01) ==
LOC: OLS.BROOKB 04:00
PROVIDERS: PCP Family Medicine; Visit Provider Family Medicine
DX: I10 Essential (primary) hypertension (principal); Z79.899 Other long term (current) drug therapy
CPT/HCPCS: 36415; 80156

== ENCOUNTER 2021-11-30 09:17 | Emergency (ER) | payer OTHER, SELFPAY ==
[2021-11-30 09:22] VITALS: PULSE 72; RESP 19; TEMP 36.6; O2SAT 97; BMI 23.9
--- NOTE | 2021-11-30 09:36 | CT_ITS ---
STUDY: CT BRAIN WITHOUT CONTRAST REASON FOR EXAM: Male, 66 years old. Seizure following head injury. History of loss of consciousness. RADIATION DOSAGE (If Supplied By Facility): CTDIvol = ( 44.99 ) mGy, DLP = ( 812.98 ) mGycm TECHNIQUE: Transaxial CT imaging of the brain was performed without administration of intravenous contrast material. Individualized dose optimization techniques were used for this CT. COMPARISON: Comparison is made with prior study dated 11/28/2021. FINDINGS: Normal soft tissue structures. Normal calvarium. Normal size ventricles and extra-axial spaces for the patient''s age. Normal white matter tracts of the cerebral hemispheres. Normal basal ganglia and thalami. Normal brainstem. Normal cerebellum. There is no intracranial hemorrhage. There are no findings of an acute ischemic infarction. Small mucosal polyp along the inferior medial aspect of the right maxillary sinus. CT/Brain/Head without Contrast IMPRESSION: Normal unenhanced CT scan of the brain. Electronically Signed: Kevin Hernandez MD at 10:37 EDT ,
--- NOTE | 2021-11-30 09:37 | EKG12_ITS ---
Test Reason : Blood Pressure : / mmHG Vent. Rate : 065 BPM Atrial Rate : 065 BPM P-R Int : 168 ms QRS Dur : 088 ms QT Int : 408 ms P-R-T Axes : 045 014 003 degrees QTc Int : 424 ms Normal sinus rhythm Nonspecific ST and T wave abnormality Abnormal ECG Confirmed by TAMMY ALMODOVAR, CAROLYN ([id number]), brands editor SHIRAZ DIETRICH ([id number]) on 12/01/2021 2:44:00 PM Referred By: MARTHA Confirmed By:CAROLYN MUNOZ MD
--- NOTE | 2021-11-30 09:37 | EDS_ITS ---
HPI History of Present Illness Chief Complaint: Seizure Informant: patient, family and EMS Onset/Context/Timing Onset: Today Current Severity: Gone Maximum Severity: Moderate Narrative Narrative: 66-year-old male history of dysphagia, schizoaffective disorder and Parkinson's disease. Today at the [facility] care facility may have had a seizure and fell and hit his head causing a forehead laceration. At this time the patient is unable to give me any history. Prior similar symptoms: No Recent Illness/Hospitalization: No PFSH PFS Medical History Anxiety Blepharitis Cataracts, bilateral COVID Difficulty walking Dysarthria and anarthria Dysphagia, oropharyngeal phase GERD (gastroesophageal reflux disease) Hallucinations Hypertension Major depression Parkinson disease Pneumonia due to COVID-19 virus Schizoaffective disorder, bipolar type Home Medications pramipexole 1.5 mg PO TID 10/05/20 [History Last Taken 10/05/20] acetaminophen 650 mg PO Q4H PRN 10/27/20 [History Last Taken Unknown] rasagiline 1 mg PO DAILY 10/27/20 [History Last Taken Unknown] rivastigmine tartrate 6 mg PO BID 10/27/20 [History Last Taken Unknown] amlodipine 10 mg PO DAILY 11/10/20 [History Last Taken Unknown] aripiprazole 10 mg PO QHS 08/20/21 [History Last Taken Unknown] omeprazole 20 mg PO DAILY 08/20/21 [History Last Taken Unknown] oxcarbazepine 300 mg PO BID 08/20/21 [History Last Taken Unknown] trazodone 25 mg PO QHS 08/20/21 [History Last Taken Unknown] Lactobacillus acidophilus [Probiotic] 10,000 mmu cells PO DAILY 11/28/21 [History Last Taken Unknown] aripiprazole 2.5 mg PO QHS 11/28/21 [History Last Taken Unknown] gfwbyykmy-bjyypogm-qzsoebjrga 1 tab PO 5X/DAY 11/28/21 [History Last Taken Unknown] lorazepam 0.5 mg PO BID PRN 11/28/21 [History Last Taken Unknown] menthol-zinc oxide [Calmoseptine] 1 applic TOPICAL TID 11/28/21 [History Last Taken Unknown] polyvinyl alcohol [Artificial Tears Plus] 2 drp LEFT EYE 4X/DAY PRN PRN 11/28/21 [History Last Taken Unknown] sennosides [senna] 8.6 mg PO BID PRN 11/28/21 [History Last Taken Unknown] sulfamethoxazole-trimethoprim [Bactrim DS] 1 tab PO BID 11/28/21 [History Last Taken Unknown] Allergy/AdvReac Type Severity Reaction Status Date / Time No Known Allergies Allergy Verified 11/28/21 14:48 Social History Smoking Status: Unknown if ever smoked substance use type: does not use ROS ROS ED ROS Narrative Unknown and unable to obtain at this time due to the patient's mental condition. Review of Systems ROS Unobtainable: due to mental condition and due to mental status EXAM Physical Exam Narrative Exam Narrative: 66-year-old male vital signs are stable afebrile. H EENT exam pupils are round reactive light. He has about a 1 inch laceration mid forehead that is vertical. It does gape. It will need to be repaired. There are small amount of oozing. Minimal hematoma. No foreign body or infection. Neck nontender trachea midline. Lungs clear to auscultation. Heart regular rhythm rate about 70. Chest wall nontender. Abdomen soft nontender normal bowel sounds no peritoneal signs. Extremities are nontender no deformity. He is really not moving them at this time. Neurologically he is not answering questions. He is not opening his eyes. I can pry them open to look at his pupils but he is not opening them. He is not answering any questions or following any commands. This may be that is post ictal or may be for other reasons. Const Vital Signs: 11/30/21 09:22 11/30/21 10:16 Temperature 97.8 F Temperature Source Temporal Pulse Rate 72 71 Respiratory Rate 19 H 13 Blood Pressure 131/72 H Blood Pressure Mean 91 Pulse Ox 97 92 Oxygen Delivery Method Room Air Room Air Positive well nourished and well developed General Appearance ED: well developed HEENT Reports moist mucous membranes trauma; Negative for tenderness Eyes PERRL General Eye ED: Negative for pale conjunctiva or scleral icterus Neck no lymphadenopathy, supple and no JVD General: Negative for tenderness Chest Wall inspection of chest normal and palpation of chest normal Resp normal respiratory effort and clear to auscultation bilaterally Effort and Inspection: Negative for pain with movement Auscultation: Negative for rales, rhonchi or wheezes Cardio regular rate, regular rhythm, S1 normal heart sound, S2 normal heart sound and no murmurs GI normal to inspection, nondistended, normoactive bowel sounds, non-tender, non- distended and no masses Inspection: Negative for abdominal distention Auscultation: normoactive bowel sounds Palpation: soft; Negative for tender, guarding or rebound tenderness present Back/Spine no CVA tenderness General Back: Negative for CVA tenderness Cervical Spine: Negative for cervical spine tenderness Thoracic Spine / Upper Back: Negative for thoracic spinal tenderness Extremity normal to inspection General Extremety ED: Negative for edema or tenderness General Extremity: Negative for edema Neuro Neuro Narrative: Eyes closed. Not following any commands. Not answering any questions. Not moving his extremities. Psych Negative for mental status grossly normal Attitude: No agitated Skin no rashes or lesions noted and No no wounds Skin Narrative: Mid forehead vertical laceration about 1 inch in length. Only repaired. Very minimal bleeding. No significant hematoma. No infection or foreign body. General Skin Exam: Negative for jaundice MDM MDM MDM Narrative Medical decision making narrative: 66-year-old male at a long-term facility with Parkinson's and schizoaffective disorder. May or may not have had a seizure today. He also hit his head. CAT scan labs are being obtained. Nursing staff spoke to his and he has no history of seizure disorder. Repeat exam patient is doing well at 10:50 AM. I spoke to his at bedside. Patient had a 2.5 cm laceration mid forehead which I cleaned and explored and Dermabond repaired. He will be discharged back to the extended care facility. They will follow up with the medical administrative assistant there Dr. Vivi Joe for further evaluation for possible seizures. I am not can start him on any seizure medic ation at this time. Lab Data Attestation: I reviewed the patient's lab results. Lab results narrative: CBC normal white count of 5. H&H 14 and 43. Electrolytes unremarkable gap of 3 BUN of 28 creatinine 1.41. Glucose 106. Cast is read by the radiologist and reviewed by me shows no acute abnormality. Labs: Laboratory Results - last 24 hr 11/30/21 11/30/21 09:43 09:43 WBC 5.6 RBC 4.83 Hgb 14.1 Hct 43.3 MCV 89.6 MCH 29.2 MCHC 32.6 RDW Std Deviation 47.6 H RDW Coeff of Shira 14.4 Plt Count 335 MPV 10.2 Immature Gran % (Auto) 0.200 Neut % (Auto) 68.9 Lymph % (Auto) 18.3 L Evans % (Auto) 10.3 H Eos % (Auto) 1.4 Baso % (Auto) 0.9 Absolute Neuts (auto) 3.9 Absolute Lymphs (auto) 1.03 Nucleated RBC % 0 Sodium 141 Potassium 4.1 Chloride 108 H Carbon Dioxide 30.0 Anion Gap 3 L BUN 28 H Creatinine 1.41 H Estim Creat Clear Calc 45.43 Est GFR (MDRD) Af Amer 65 Est GFR (MDRD) Non-Af 54 L BUN/Creatinine Ratio 19.9 Glucose 106 Calcium 9.1 Radiography Diagnostic Testing: Clinical Impression(s) from Imaging Studies Brain CT 11/30/21 09:36 IMPRESSION: Normal unenhanced CT scan of the brain. Electronically Signed: Kevin Hernandez MD at 10:37 EDT , Rhythm Strip Rhythm Strip: Sinus Rhythm Rate: 65 Ectopy: None EKG Initial EKG: Attestation: I personally reviewed and interpreted this EKG as follows: Interpretation: Sinus Rhythm and No Acute Injury Pattern Comments: Normal sinus rhythm rate of 65 no acute signs of NM or ischemia. Some artifact. Procedures Lacerations Forehead laceration: Length: 0.98 in Depth: Skin Shape: Linear Laceration repair: Dermabond Comment: Mid forehead 2.5 cm laceration. Clean. Explored. Dermabond closed. Steri-Strips. Patient did well. Tetanus updated Discharge Plan Triage Chief Complaint: Seizure ED Provider: Damon Marshall Dx/Rx/DC Orders Clinical Impression: Seizure, Fall, Head injury, Forehead laceration Instructions: Trauma Head, ED Seizure New Onset Unknown ... Prescriptions: No Action pramipexole 1.5 MG tablet extended release 24 hr 1.5 mg PO TID RF: 0 rivastigmine tartrate 1.5 MG capsule 6 mg PO BID RF: 0 acetaminophen 325 MG tablet 650 mg PO Q4H PRN (Reason: Pain 1-10 Or Fever) RF: 0 rasagiline 1 MG tablet 1 mg PO DAILY RF: 0 amlodipine 5 MG tablet 10 mg PO DAILY RF: 0 trazodone 50 mg tablet 25 mg PO QHS RF: 0 oxcarbazepine 300 mg tablet 300 mg PO BID RF: 0 omeprazole 20 mg capsule,delayed release(DR/EC) 20 mg PO DAILY RF: 0 aripiprazole 5 mg tablet 10 mg PO QHS RF: 0 sennosides [senna] 8.6 mg Tablet 8.6 mg PO BID PRN (Reason: Constipation) RF: 0 polyvinyl alcohol [Artificial Tears Plus] 1.4 % Drops 2 drp LEFT EYE 4X/DAY PRN PRN (Reason: dry eye) RF: 0 sulfamethoxazole-trimethoprim [Bactrim DS] 800-160 mg Tablet 1 tab PO BID RF: 0 lorazepam 0.5 mg Tablet 0.5 mg PO BID PRN (Reason: Anxiety) RF: 0 aripiprazole 5 mg Tablet 2.5 mg PO QHS RF: 0 riezqwxye-yyocevgr-pfjqkfoubr 50-200-200 mg Tablet 1 tab PO 5X/DAY RF: 0 menthol-zinc oxide [Calmoseptine] 0.44-20.6 % Ointment 1 applic TOPICAL TID RF: 0 Probiotic 10 billion cell Capsule 10,000 mmu cells PO DAILY RF: 0 Primary Care Provider: Vivi Joe Referrals: Vivi Joe MD [Primary Care Provider] - 3-5 Days Activity Restrictions/Additional Instructions: Follow-up with your medical administrative assistant to see if they would do any further evaluation for possible new onset seizure disorder. He was not started on any seizure medications today. Mid forehead laceration was Dermabond repaired with skin glue. Steri-Strips. Those can come off and in 7 to 10 days. Disposition Disposition: Home, Self Care
[2021-11-30 09:51] LABS: Absolute Lymphocyte Count 1.03 X10^3/uL (0.83-4.51); Absolute Neutrophil Count 3.9 X10^3/uL (2.0-7.7); Basophil# 0.05 X10^3/uL; Basophil% 0.9 % (0-1); Eosinophil# 0.08 X10^3/uL; Eosinophils% 1.4 % (0-5); Hematocrit 43.3 % (40-54); Hemoglobin 14.1 g/dL (13.0-16.5); Lymphocyte # 1.03 X10^3/ul (0.83-4.51); Lymphocyte % 18.3 % (19-41); Mean Corp Hgb Conc 32.6 g/dL (32-36); Mean Corpuscular Hgb 29.2 pg (27.0-32.0); Mean Corpuscular Volume 89.6 fL (80-94); Mean Platelet Vol. 10.2 fl (6.2-12.0); Monocyte# 0.58 X10^3/uL; Monocyte% 10.3 % (0-10); NRBC Flagged by Analyzer 0 % (0-5); Neutrophil # 3.87 X10^3/uL (2.7-7.7); Neutrophil % 68.9 % (47-70); Platelet Count 335 K/mm3 (150-450); RBC Distribution Width CV 14.4 % (11.6-14.6); RBC Distribution Width SD 47.6 fl (35.1-43.9); Red Blood Count 4.83 M/mm3 (4.6-6.2); White Blood Count 5.6 K/mm3 (4.4-11.0)
[2021-11-30 10:03] LABS: Anion Gap 3 (5-15); BUN 28 mg/dL (7-18); BUN/Creat Ratio 19.9 RATIO (10-20); Calcium,Total 9.1 mg/dL (8.5-10.1); Chloride 108 mmol/L (98-107); Creatinine, Serum 1.41 mg/dL (0.70-1.30); EST Glomerular Filtration Rate 54 mL/min (>60); Est Glom Filt Rate - Afr Amer 65 mL/min (>60); Estimated Creatinine Clearance 45.43 ml/min; Glucose 106 mg/dL (74-106); Potassium 4.1 mmol/L (3.5-5.1); Sodium Level 141 mmol/L (136-145)
[2021-11-30 10:16] VITALS: BP 131/72; PULSE 71; RESP 13; O2SAT 92
--- NOTE | 2021-11-30 10:50 | ED.RN ---
pt's at bedside and able to give hx recent declines at [facility]. wound to forehead closed with dermobond and steri strips with dr. burnett and velma well.
[2021-11-30] MEDS: Diphth,Pertuss(Acell),Tet Vac 0.5 ML Vial IM (11:17)
[2021-11-30 11:57] VITALS: BP 160/79; PULSE 69; RESP 12
--- NOTE | 2021-11-30 12:11 | ED.RN ---
[facility] ETA 45 MIN
--- NOTE | 2021-11-30 13:21 | NURSING ---
[facility] CALL[facility], ETA IS 15 MIN
== END 2021-11-30 14:00 | disposition skilled nursing facility (03) ==
PROVIDERS: Emergency Provider Emergency Medicine; PCP Family Medicine; Visit Provider Emergency Medicine
DX: S01.81XA Laceration without foreign body of other part of head, initial encounter (principal); G20 Parkinson's disease; F25.0 Schizoaffective disorder, bipolar type; W19.XXXA Unspecified fall, initial encounter; Y92.129 Unspecified place in nursing home as the place of occurrence of the external cause; I10 Essential (primary) hypertension; K21.9 Gastro-esophageal reflux disease without esophagitis; Z79.899 Other long term (current) drug therapy; Z86.16 Personal history of COVID-19
CPT/HCPCS: 12011; 70450; 80048; 85025; 90471; 90715; 93005; 99285; A4216

== ENCOUNTER 2021-12-10 19:42 | Emergency (ER) | payer OTHER, MEDICARE, SELFPAY ==
[2021-12-10 19:43] VITALS: BP 137/73; PULSE 78; RESP 19; TEMP 36.8; O2SAT 98; BMI 23.3
--- NOTE | 2021-12-10 19:52 | CT_ITS ---
EXAM: CT HEAD WITHOUT INTRAVENOUS CONTRAST CLINICAL INDICATION: Change in Mental Status TECHNIQUE: Multiple axial images were obtained of the head without intravenous contrast. CTDIvol = ( 44.99 ) mGy, DLP = ( 863.60 ) mGycm This CT exam was performed using one or more of the following dose reduction techniques: automated exposure control, adjustment of the mA and/or kV according to patient size, and/or use of iterative reconstruction technique. This report was created using [employer] report generation technology. COMPARISON: None. FINDINGS: BRAIN AND EXTRA-AXIAL SPACES: Unremarkable. No intra- or extra-axial hemorrhage. No evidence of acute infarct. No intracranial mass or mass effect. There is preservation of the ascencio/white matter interface. Posterior fossa structures are unremarkable. Ventricles are appropriate for age. No hydrocephalus. Basal cisterns are patent. BONES/JOINTS: Unremarkable. No discrete lytic or blastic abnormalities. SINUSES: Unremarkable as visualized. Clear. MASTOID AIR CELLS: Unremarkable. Clear. ORBITS: Visualized globes, extraocular muscles, optic nerves and retrobulbar fat appear unremarkable. CT/Brain/Head without Contrast IMPRESSION: Negative head/brain CT without intravenous contrast. Electronically Signed: Tyshawn Cohen MD at 21:16 EDT ,
--- NOTE | 2021-12-10 19:52 | EKG12_ITS ---
Test Reason : [facility] [place] Pressure : / mmHG Vent. Rate : 075 BPM Atrial Rate : 075 BPM P-R Int : 158 ms QRS Dur : 088 ms QT Int : 374 ms P-R-T Axes : 032 -07 -05 degrees QTc Int : 417 ms Normal sinus rhythm Normal ECG Confirmed by SARAH ALMODOVAR, JEFFY ([id number]), editor trade journal JAVY MCGHEE ([id number]) on 12/13/2021 12:11:17 PM Referred By: HIRAL Confirmed By:JEFFY SMITH MD
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
[2021-12-10 20:13] LABS: Absolute Lymphocyte Count 0.84 X10^3/uL (0.83-4.51); Absolute Neutrophil Count 4.8 X10^3/uL (2.0-7.7); Basophil# 0.06 X10^3/uL; Eosinophil# 0.11 X10^3/uL; Eosinophils% 1.7 % (0-5); Hematocrit 43.1 % (40-54); Lymphocyte # 0.84 X10^3/ul (0.83-4.51); Lymphocyte % 13.4 % (19-41); Mean Corp Hgb Conc 32.5 g/dL (32-36); Mean Corpuscular Hgb 28.8 pg (27.0-32.0); Mean Corpuscular Volume 88.7 fL (80-94); Mean Platelet Vol. 10.1 fl (6.2-12.0); Monocyte# 0.46 X10^3/uL; Monocyte% 7.3 % (0-10); NRBC Flagged by Analyzer 0 % (0-5); Neutrophil # 4.81 X10^3/uL (2.7-7.7); Neutrophil % 76.4 % (47-70); Platelet Count 343 K/mm3 (150-450); RBC Distribution Width CV 14.6 % (11.6-14.6); Red Blood Count 4.86 M/mm3 (4.6-6.2); White Blood Count 6.3 K/mm3 (4.4-11.0)
[2021-12-10 20:30] LABS: Anion Gap 3 (5-15); BUN 24 mg/dL (7-18); BUN/Creat Ratio 22.9 RATIO (10-20); Calcium,Total 9.1 mg/dL (8.5-10.1); Chloride 108 mmol/L (98-107); Creatinine, Serum 1.05 mg/dL (0.70-1.30); EST Glomerular Filtration Rate 75 mL/min (>60); Est Glom Filt Rate - Afr Amer 91 mL/min (>60); Estimated Creatinine Clearance 61.01 ml/min; Glucose 116 mg/dL (74-106); Potassium 3.9 mmol/L (3.5-5.1); Sodium Level 139 mmol/L (136-145)
[2021-12-10 20:35] LABS: Alcohol, Blood (Medical)-Serum < 3.0 mg/dL
[2021-12-10 21:28] LABS: Amphetamine Urine VISTA NEGATIVE (<1000 ng/mL); Barbiturate Urine VISTA NEGATIVE (< 200 ng/mL); Benzodiazepine Urine VISTA NEGATIVE (< 200 ng/mL); Cocaine Urine VISTA NEGATIVE (< 300 ng/mL); Ecstacy Urine VISTA NEGATIVE (< 500 ng/mL); Methadone Urine VISTA NEGATIVE (< 300 ng/mL); PCP Urine VISTA NEGATIVE (< 25 ng/mL); THC Urine VISTA NEGATIVE (< 50 ng/mL); Vista UDS pH Range 7
[2021-12-10 21:40] LABS: Bacteria 0 SEEN /hpf (None Seen); Red Blood Cells-Urine 0 SEEN /hpf (0-5); Squamous Epithelial Cells - UA 0 SEEN /hpf (0-5)
[2021-12-10 21:44] VITALS: BP 108/70; PULSE 72; RESP 16; O2SAT 96
[2021-12-10 21:47] LABS: Color, Urine Amber (Yellow); Glucose, Dipstick Normal (Normal); Ketone-Dipstick 5 mg/dl (Negative); Leukocyte Esterase-Dipstick 25 /ul (Negative); Nitrite-Dipstick Negative (Negative); Occult Blood-Urine Negative /ul (Negative); Protein-Dipstick 15 mg/dl (Negative); Specific Gravity, Urine 1.015 (1.002-1.030); Urine Bilirubin Dipstick Negative (Negative); Urine Clarity Clear (Clear); Urine Urobilinogen Normal (Normal)
--- NOTE | 2021-12-10 21:58 | ED.RN ---
CALLED AND FAXED PAPERS TO CRISIS
[2021-12-10 22:00] LABS: Mucous, Urine 1+ /hpf (<or=2+); White Blood Cells 0-5 SEEN /hpf (0-5)
[2021-12-10 22:51] VITALS: RESP 15
[2021-12-10 23:08] VITALS: RESP 15
[2021-12-11 01:12] VITALS: RESP 17
[2021-12-11 05:10] VITALS: PULSE 74; RESP 19; O2SAT 96
--- NOTE | 2021-12-11 08:16 | NURSING ---
PER BRAD WITH CRISIS PT IS DECLINED AT [facility]. PENDING REVIEW WITH [facility]
[2021-12-11 10:00] VITALS: BP 138/94; PULSE 71; RESP 16; O2SAT 95
--- NOTE | 2021-12-11 10:54 | ED.RN ---
Pt accepted to [facility] under Dr Cunningham. Nurse to nurse report #[phone].
--- NOTE | 2021-12-11 11:01 | ED.RN ---
Pt's updated on transfer to [facility]. Phone number provided.
--- NOTE | 2021-12-11 11:01 | CM.ED ---
Social Work Telephone call to crisis, Irma. This social work updated Irma that patient has been accepted to [facility]. PLAN: [facility] Corby MANZANO, CHERYLE
== END 2021-12-11 12:04 ==
PROVIDERS: Emergency Provider Emergency Medicine; PCP Family Medicine; Visit Provider Emergency Medicine
DX: G20 Parkinson's disease (principal); F25.0 Schizoaffective disorder, bipolar type; F02.81 Dementia in other diseases classified elsewhere, unspecified severity, with behavioral disturbance; I10 Essential (primary) hypertension; F41.9 Anxiety disorder, unspecified; Z79.899 Other long term (current) drug therapy; Z86.16 Personal history of COVID-19
CPT/HCPCS: 36415; 70450; 80048; 80307; 81001; 82077; 85025; 87811; 93005; 99285; A4216

== ENCOUNTER → 2022-01-05 | Outpatient (REF) | payer OTHER, MEDICARE, SELFPAY ==
[2022-01-05 08:39] LABS: Absolute Lymphocyte Count 1.29 X10^3/uL (0.83-4.51); Absolute Neutrophil Count 3.6 X10^3/uL (2.0-7.7); Basophil# 0.04 X10^3/uL; Basophil% 0.7 % (0-1); Eosinophil# 0.13 X10^3/uL; Eosinophils% 2.3 % (0-5); Hematocrit 42.2 % (40-54); Hemoglobin 13.5 g/dL (13.0-16.5); Lymphocyte # 1.29 X10^3/ul (0.83-4.51); Lymphocyte % 23.3 % (19-41); Mean Corpuscular Hgb 29.3 pg (27.0-32.0); Mean Corpuscular Volume 91.5 fL (80-94); Mean Platelet Vol. 10.3 fl (6.2-12.0); Monocyte# 0.48 X10^3/uL; Monocyte% 8.7 % (0-10); NRBC Flagged by Analyzer 0 % (0-5); Neutrophil # 3.59 X10^3/uL (2.7-7.7); Neutrophil % 64.8 % (47-70); Platelet Count 364 K/mm3 (150-450); RBC Distribution Width CV 14.8 % (11.6-14.6); Red Blood Count 4.61 M/mm3 (4.6-6.2); White Blood Count 5.5 K/mm3 (4.4-11.0)
[2022-01-05 08:53] LABS: Hemoglobin A1c 5.4 % (3.8-5.6)
[2022-01-05 08:57] LABS: ALB/GLOB Ratio 1.4 RATIO (0.9-2.4); AST(SGOT) 19 U/L (15-37); Alanine Aminotransfer ALT/SGPT 7 U/L (16-61); Albumin, Serum 3.9 g/dL (3.2-5.0); Alkaline Phosphatase 65 U/L (45-117); Anion Gap 8 (5-15); BUN 27 mg/dL (7-18); BUN/Creat Ratio 31.1 RATIO (10-20); Calcium,Total 8.8 mg/dL (8.5-10.1); Chloride 111 mmol/L (98-107); Cholesterol 208 mg/dL (200); Creatinine, Serum 0.87 mg/dL (0.70-1.30); EST Glomerular Filtration Rate 94 mL/min (>60); Est Glom Filt Rate - Afr Amer 113 mL/min (>60); Globulin 2.8 g/dL (2.2-4.2); Glucose 87 mg/dL (74-106); High Density Lipoprotein 104 mg/dL; Potassium 4.5 mmol/L (3.5-5.1); Protein, Total 6.7 g/dL (6.4-8.2); Sodium Level 141 mmol/L (136-145); Triglycerides 52 mg/dL; Very Low Density Lipoprotein 10 mg/dL (5-40)
== END | disposition home or self-care (01) ==
PROVIDERS: PCP Family Medicine
DX: Z79.899 Other long term (current) drug therapy (principal)
CPT/HCPCS: 36415; 80053; 80061; 83036; 85025

== ENCOUNTER 2022-01-12 14:49 | Observation (INO) | payer OTHER, MEDICARE, SELFPAY ==
[2022-01-12 14:50] VITALS: BP 134/117; PULSE 94; RESP 16; TEMP 36.8; O2SAT 95; BMI 25.0
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
[2022-01-12 16:28] VITALS: BP 132/66; PULSE 90; RESP 15; O2SAT 98
[2022-01-12 16:32] LABS: Absolute Lymphocyte Count 0.78 X10^3/uL (0.83-4.51); Absolute Neutrophil Count 4.2 X10^3/uL (2.0-7.7); Basophil# 0.05 X10^3/uL; Basophil% 0.9 % (0-1); Eosinophils% 1.8 % (0-5); Hemoglobin 12.9 g/dL (13.0-16.5); Lymphocyte # 0.78 X10^3/ul (0.83-4.51); Lymphocyte % 13.9 % (19-41); Mean Corp Hgb Conc 32.3 g/dL (32-36); Mean Corpuscular Hgb 29.6 pg (27.0-32.0); Mean Corpuscular Volume 91.7 fL (80-94); Mean Platelet Vol. 10.7 fl (6.2-12.0); Monocyte# 0.45 X10^3/uL; NRBC Flagged by Analyzer 0 % (0-5); Neutrophil # 4.22 X10^3/uL (2.7-7.7); Neutrophil % 75.2 % (47-70); POSITIVE COUNT YES; Platelet Count 269 K/mm3 (150-450); RBC Distribution Width CV 14.5 % (11.6-14.6); RBC Distribution Width SD 48.9 fl (35.1-43.9); Red Blood Count 4.36 M/mm3 (4.6-6.2); White Blood Count 5.6 K/mm3 (4.4-11.0)
[2022-01-12 16:34] LABS: Differential Indicated SCAN CRITERIA MET
--- NOTE | 2022-01-12 16:45 | ED.RN ---
this nurse was called by staff at [facility] related to care of this patient. during report this nurse was informed that the patient is not welcome to return to there facility. this information was given to me by Anum Fernandez the director of health and wellness at this facility. she stated she would drop of a letter to the effects of no being able to return. luis clemons rn [id number]
[2022-01-12 17:04] LABS: Platelet Estimate ADEQUATE (ADEQ); Red Cell Morphology NORM C+C NORMAL (NORM C&C)
[2022-01-12 17:11] LABS: Anion Gap 2 (5-15); BUN 29 mg/dL (7-18); BUN/Creat Ratio 29.5 RATIO (10-20); Calcium,Total 9.3 mg/dL (8.5-10.1); Chloride 110 mmol/L (98-107); Creatinine, Serum 0.98 mg/dL (0.70-1.30); EST Glomerular Filtration Rate 81 mL/min (>60); Est Glom Filt Rate - Afr Amer 98 mL/min (>60); Estimated Creatinine Clearance 65.37 ml/min; Glucose 124 mg/dL (74-106); Potassium 5.1 mmol/L (3.5-5.1); Sodium Level 141 mmol/L (136-145)
--- NOTE | 2022-01-12 18:14 | ED.RN ---
upon entering patients room pt was found holding a letter from care facility. letter contains discharge from there facility. social media sr strategy manager, doctor, and notified. luis clemons rn [id number]
[2022-01-12 19:03] LABS: Mucous, Urine 0 SEEN /hpf (<or=2+); Red Blood Cells-Urine 0 SEEN /hpf (0-5)
[2022-01-12 19:30] LABS: Color, Urine Yellow (Yellow); Glucose, Dipstick Normal (Normal); Ketone-Dipstick 15 mg/dl (Negative); Leukocyte Esterase-Dipstick 25 /ul (Negative); Nitrite-Dipstick Negative (Negative); Occult Blood-Urine Negative /ul (Negative); Protein-Dipstick Negative (Negative); Specific Gravity, Urine 1.015 (1.002-1.030); Urine Bilirubin Dipstick Negative (Negative); Urine Clarity Clear (Clear); Urine Urobilinogen Normal (Normal)
[2022-01-12 19:42] LABS: Squamous Epithelial Cells - UA 0-5 SEEN /hpf (0-5); White Blood Cells 0-5 SEEN /hpf (0-5)
[2022-01-12 19:43] LABS: Bacteria RARE /hpf (None Seen)
[2022-01-12 20:33] VITALS: RESP 16
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
--- NOTE | 2022-01-12 21:50 | ED.RN ---
Pt has been multiple times, had to be assisted back to bed. pt is a fall risk. Dr. Raygoza gave verbal order for po ativan, pt refused to take, verbal order given for ativan 1 mg IM.
[2022-01-12] MEDS: LORazepam 2 MG/ML Syringe 1 MG IM (22:05)
[2022-01-12 23:45] VITALS: BP 129/79; PULSE 60; RESP 18; O2SAT 97
[2022-01-13] VITALS (10 sets, daily range): BP systolic 105–138; BP diastolic 60–80; PULSE 56–72; RESP 14–18; TEMP 36.4–36.8; O2SAT 96–98; BMI 21.1
--- NOTE | 2022-01-13 07:17 | ED.RN ---
Pt sleeping, respires even and unlabored, to administer medication when pt is awake.
--- NOTE | 2022-01-13 08:09 | ED.RN ---
THIS RN CALLED TO DIETARY TO OBTAIN A MEAL TRAY FOR BREAKFAST AT 0800.
[2022-01-13] MEDS: Cholecalciferol (VIT D3) 25 MCG TABLET (1,000 UNITS) 50 MCG PO (10:01)
[2022-01-13] MEDS: Citalopram 20 MG Tablet PO (10:01)
[2022-01-13] MEDS: amLODIPine 10 MG Tablet PO (10:01)
[2022-01-13] MEDS: Pantoprazole Sodium 20 MG Tablet PO (10:01)
[2022-01-13] MEDS: CARBIDOPA/LEVODOPA CR 50/200 Tablet PO ×2 (10:02→14:38)
[2022-01-13] MEDS: Pramipexole Di-HCl 0.5 MG Tablet 1.5 MG PO ×3 (10:02→20:57)
--- NOTE | 2022-01-13 10:22 | ED.RN ---
PT TAKES PO MEDS IN APPLESAUCE. PT WITH VS TAKEN, PT GIVEN WATER PER PATIENT REQUEST. PT INCONTINENT OF URINE, CLEANED WITH BATH WIPES AND PLACED IN CLEAN BRIEF. BED LINENS CHANGED. PT RESTING WITH EYES CLOSED. UPON PROVIDING LINDA CARE, THIS RN NOTED PT WITH REDDENED STAGE 1 AREA SIZE OF DIME TO SACRAL AREA, PT ROTATED TO RIGHT SIDE AND POSITIONED WITH PILLOWS. DR. THOMAS INFORMED.
--- NOTE | 2022-01-13 11:50 | ED.RN ---
DR. THOMAS AT BEDSIDE TO ASSESS PT SKIN. PER DR. THOMAS VERBAL ORDER TO APPLY BACITRACIN TO AREA. BACITRACIN APPLIED TO COCCYX.
--- NOTE | 2022-01-13 12:20 | CASEMGMT ---
Social Work Note SW received message from Janel pt's stating she called [facility] in [place] and they were asking her about her insurance and they were not sure if they accept her insurance. Janel states she is not sure why they would be asking her about her insurance as her insurance was only every used for like medication or PT/OT. Janel states her daughter has a call out to [facility] as well but they haven't heard back yet. SW to continue to follow. Plan: SNF pending acceptance and pre-cert Kinga Nuñez MORTGAGE LOAN ASSISTANT, MACHINE SPREADER
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
--- NOTE | 2022-01-13 16:06 | CM.ED ---
MARISELA called patient's , Janel and advised her that patient was admitted to [facility] . Cristiane GARZA
--- NOTE | 2022-01-13 17:25 | CM.ED ---
SW received call from [facility] admission staff, Kat Rodriguez. She calin that she spoke to her hr administrator and they can take patient after he goes to [facility] psych. MARISELA explained that patient had been assessed by crisis an he did not meet criteria for [facility]. Kat will update her hr administrator and call this medical writer back. MARISELA received call from Kat at [facility]. Kat stated that they can accept patient but not until Saturday. MARISELA advised that patient will need a PASSR and will trip the screen requiring a level 2 assessment due to MH diagnosis. Patient's clinical social worker will keep Kat updated regarding his status. MARISELA called patient's , Janel and updated her that [facility] had accepted. MARISELA asked Janel about medications that she did not authorize Gurmeet to give. Janel said that patient was prescribed Nuplazid in July and it cost $3400 for 24 pills and he got worse and so she did not want him on the medication but Gurmeet said keep trying but even the nurses stated that it wasn't working so it was then discontinued. Marguerite asked how long patient will be in the hospital and MARISELA explained that patient will need level 2 assessment so it could be a week at the earliest. Plan: [facility] at Discharge Cristiane GARZA
[2022-01-13] MEDS: Carbidopa/Levodopa/Entacapone 200 1 TAB PO ×2 (18:07→20:58)
[2022-01-13] MEDS: LORazepam 0.5 MG Tablet PO (20:06)
[2022-01-13] MEDS: Zolpidem Tartrate 5 MG Tablet PO (20:56)
[2022-01-14 05:19] VITALS: BP 156/88; PULSE 64; RESP 16; TEMP 36.7; O2SAT 98
[2022-01-14] MEDS: LORazepam 0.5 MG Tablet PO ×2 (05:26→17:10)
[2022-01-14] MEDS: Carbidopa/Levodopa/Entacapone 200 1 TAB PO ×3 (05:26→17:09)
[2022-01-14] MEDS: Pramipexole Di-HCl 0.5 MG Tablet 1.5 MG PO ×2 (05:27→12:15)
[2022-01-14 08:26] VITALS: PULSE 60; RESP 13; O2SAT 97
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
[2022-01-14] MEDS: Pantoprazole Sodium 20 MG Tablet PO (12:15)
[2022-01-14] MEDS: Citalopram 20 MG Tablet PO (12:15)
[2022-01-14] MEDS: amLODIPine 10 MG Tablet PO (12:18)
[2022-01-14 12:26] VITALS: BP 104/62; PULSE 60; RESP 16; TEMP 36.3; O2SAT 97
--- NOTE | 2022-01-14 13:58 | NURSING ---
This nurse heard bedexit, seen on camera pt getting oob attempting to stand. This nurse to room found patient sitting on floor. pt confused, mumbling speech at times. appears restless. no obvious signs of injury. staff assist button hit. Vitals checked by primary RN. pt assisted back to bed x5 assist and gait belt. pt attempted to hit as assisting but relaxed with verbal explanations. vitals rechecked. Dr. Brasher sent text. primary RN remains at bedside. side rails x3, bedexit, on camera. will consider moving closer to desk when bed available. pt laying quietly without attempts to get oob.
--- NOTE | 2022-01-14 14:00 | NURSING ---
into room d/t staff emergency niko Sebastian Rn in room with pt. pt on his knees kneeling at side of bed. bp obtained 65/39 pulse 87 at that time. pt remains unable to answer specific questions r/t how he is feeling etc. pt lifted back to bed x5 staff. pt curently laying in bed, supine on his left side bp 99/59 pulse 68, spo2 remains in high 90's (96). pt+ flatus, no bm in attends. texted to update POC.
--- NOTE | 2022-01-14 14:18 | NURSING ---
spoke with Janel as listed in demogrpahics and updated. Janel states i am not surprised to hear this and rather immune to this happening because he did this all the time at home. Janel states she is appreciative of staff and am just having a hard time with all of this so i haven't been. active listending provided. Janel shares that pt usually likes vanilla milkshakes so was added to dietary requests. Janel then states: Good luck to all of you.
--- NOTE | 2022-01-14 14:25 | NURSING ---
pt remains on camera- charge nurse noticing pt attempting to get oob- said nurse to room and just as entering room, bed exit alarming. pt sitting on side of bed with his shalom legs over side of bottom bedrail, legs dangling. pt cooperative in assisting placing his legs back into the bed. bp 91/65, pulse 76. pt is restless at times, figiting with his blankets. and attempts to get oob again while said nurse at bedside.
--- NOTE | 2022-01-14 14:30 | NURSING ---
alemite operator remains in room with patient at this time. supervisor concrete stone finishing informed.
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
[2022-01-14] MEDS: Haloperidol Lactate 5 MG/ML Vial 2 MG IM (15:38)
[2022-01-15] MEDS: Carbidopa/Levodopa/Entacapone 200 1 TAB PO ×6 (00:43→21:15)
[2022-01-15] MEDS: Pramipexole Di-HCl 0.5 MG Tablet 1.5 MG PO ×4 (00:43→21:14)
[2022-01-15] MEDS: Zolpidem Tartrate 5 MG Tablet PO ×2 (00:47→21:14)
[2022-01-15 06:29] VITALS: BP 109/53; PULSE 63; RESP 16; TEMP 36.6; O2SAT 98
--- NOTE | 2022-01-15 07:27 | PCM.PN.HOSP ---
Objective Data Objective Data Vital Signs: Vital Signs Temp Pulse Resp BP Pulse Ox 97.9 F 63 16 109/53 L 98 01/15/22 06:29 01/15/22 06:29 01/15/22 06:29 01/15/22 06:29 01/15/22 06:29 Oxygen Delivery Method Room Air Weight: 124 lb 15.998 oz Body Mass Index (BMI) 21.1 Intake & Output: Intake and Output for Last 24 Hours 01/13/22 01/14/22 01/15/22 23:59 23:59 23:59 Intake Total 560 / 560 200 / 200 Output Total 300 / 300 Balance 560 / 560 -100 / -100 Lab / Micro Data Result Diagrams: 01/12/22 16:20 01/12/22 16:20 Micro: Microbiology 01/12/22 16:20 Nasal Secretion SARS-CoV-2 Antigen (Rapid) - Final Assessment & Plan Assessment/Plan (1) Dementia: (2) Schizoaffective disorder: (3) Aggressive behavior due to dementia: (4) Dysarthria and anarthria: (5) Parkinson disease: PLAN: 1. Parkinson's disease with dementia/schizoaffective disorder with agitation Continue on Sinemet, Clozaril, Entacapone, Rasagiline, Mirapex, Ativan prn 2. Hypertension, blood pressure relatively low, will decrease amlodipine 10 to 5 mg daily 3. DVT PPx- Lovenox SC 4. Disposition: Placement ongoing, SW consulted
[2022-01-15 09:26] VITALS: BP 90/56; PULSE 66; RESP 16; TEMP 36.6; O2SAT 99
[2022-01-15] MEDS: Enoxaparin 40 MG/0.4 ML Syringe SC (09:36)
[2022-01-15] MEDS: Pantoprazole Sodium 20 MG Tablet PO (09:36)
[2022-01-15] MEDS: Citalopram 20 MG Tablet PO (09:36)
[2022-01-15] MEDS: Acetaminophen 325 MG Tablet 650 MG PO (09:40)
--- NOTE | 2022-01-15 11:39 | CASEMGMT ---
VALERIANO CUEVA called pt as pt has dementia. VALERIANO CUEVA explained [facility] form to pt , she voiced understanding. Pt gave verbal consent for signature on the form and filed in chart. Pt denied need for copy to be placed in patient's room. Patient's had no further questions or concerns at this time.
--- NOTE | 2022-01-15 11:42 | PN.HOSP_ITS ---
Documented by User: Lawson GAMEZ 01/15/22 11:55 Subjective Subjective Patient is a 66-year-old male comfortably resting in bed, alert and orient x3. Patient is not currently agitated and denies any concerning symptoms. Does not appear in acute distress. Objective Data Objective Data Vital Signs: Vital Signs Temp Pulse Resp BP Pulse Ox 97.8 F 66 16 90/56 L 99 01/15/22 09:26 01/15/22 09:26 01/15/22 09:26 01/15/22 09:26 01/15/22 09:26 Oxygen Delivery Method Room Air Weight: 124 lb 15.998 oz Body Mass Index (BMI) 21.1 Intake & Output: Intake and Output for Last 24 Hours 01/13/22 01/14/22 01/15/22 23:59 23:59 23:59 Intake Total 560 / 560 200 / 200 Output Total 300 / 300 Balance 560 / 560 -100 / -100 Lab / Micro Data Result Diagrams: 01/12/22 16:20 01/12/22 16:20 Micro: Microbiology 01/12/22 16:20 Nasal Secretion SARS-CoV-2 Antigen (Rapid) - Final Physical Exam Const alert, oriented x3 and no apparent distress HEENT head/scalp atraumatic and moist oral mucous membranes Head and Scalp: normocephalic Eyes PERRL, EOMs intact bilaterally and conjunctivae normal Neck no lymphadenopathy, supple and no JVD Resp normal respiratory effort, no retractions and no use of accessory muscles Cardio regular rate, regular rhythm and no JVD GI normal to inspection, nondistended, normoactive bowel sounds and soft to palpation Extremity normal to inspection, full ROM and no clubbing, cyanosis or edema Skin no rashes or lesions noted, no wounds and skin turgor normal Neuro CN's II-XII intact bilaterally Psych affect normal Assessment & Plan Assessment/Plan (1) Dementia: (2) Aggressive behavior due to dementia: (3) Schizoaffective disorder: (4) Parkinson disease: PLAN: Day 2 Discharge planning: Currently attempting to get patient placed at SNF, case management/manager social services following. 1) adult failure to thrive Currently attempting to get patient placed. 2) Parkinson's disease with dementia/history of disorder No reported agitation from overnight nurses or this morning on my exam. Continue Sinemet, Clazuril, entacapone, rasagiline, Mirapex. Ativan as needed. 3) HTN Continue amlodipine 5 mg daily. DVT prophylaxis -Lovenox Patient seen by Lawson Herrera PA-C, under the supervision of Dr. Vega. Time spent on patient care: 10 minutes. Documented by User: Dr. Tan Vega MD 01/15/22 13:13 Subjective Subjective Follow-up for mobility disorder/debility due to Parkinson's disease and schizoaffective disorder. Objective Data Lab / Micro Data Result Diagrams: 01/12/22 16:20 01/12/22 16:20 Physical Exam Narrative General: Alert, Oriented x3, Cooperative HEENT: Atraumatic, PERRLA, EOMI, Normocephalic Oral: No Gingival or Mucosal Lesions/ Ulcerations Neck: Supple, No JVD, Negative Carotid Bruits Lungs: Air entry diminished in bilateral lung bases. No crepitation/rhonchi Cardiovascular: Regular rate, Regular Rhythm, Normal S1, Normal S2, No murmurs Abdomen: Bowel Sounds Present, Soft, Non Tender, Non-Distended : No renal angle tenderness. No suprapubic tenderness. Extremities: No edema, Capillary Refill Less than 3 Seconds Skin: No rashes, No breakdown Musculoskeletal: No Tenderness to Palpation of Joints or Extremities Neurological: Slow and low volume, low pitch speech output. Masked facies. Muscle strength 4+/5 at major joints but mild disequilibrim DTR 2+/4 and Symmetrical Psych/Mental Status: Flat affect Assessment & Plan Assessment/Plan (1) Parkinson disease: (2) Dysarthria and anarthria: PLAN: This patient was seen in conjunction with VERA Cox. I have independently interviewed and examined the patient and reviewed pertinent history, examination findings, laboratory and plan of management. I have reviewed the note and agree with the documented findings with the few additional points. In brief, patient was admitted with incidence of agitation at [facility] unit. Patient has history of Parkinson's disease and schizoaffective disorder. Patient has decreased speech output, dysarthria, low motivation and flat affect. cooler room worker and case management assistant are working on it. Patient has moderate loss of subcutaneous fat. Mild chronic protein calorie malnutrition. Hypertension: Blood pressure 5 mg daily. Right rotator cuff tendinitis or shoulder joint arthritis: Patient complain of mild pain over shoulder joint and stiffness. Outpatient evaluation. I have discussed my assessment with VERA Cox and orders have been reviewed. Charges/Coding Visit Charges Inpatient E&M: 45251 Subs Hosp L2
[2022-01-15 13:17] VITALS: BP 98/62; PULSE 77; RESP 16; TEMP 36.8; O2SAT 96
--- NOTE | 2022-01-15 14:42 | CASEMGMT ---
Social Work SW spoke to Kat at [facility] and she confirmed they are able to accept pt. Pt will be private pay as [facility] does not accept pt insurance. Phone call to pt Janel. Janel states she has found a new facility that she would prefer pt to go to and Janel has spoke to this facility. Janel requesting referral be faxed. Phone call placed to Jayesh Monge at [facility] (phone [phone], ) and left message requesting return call. Clinicals faxed. Will await return call. SW complete PAS/RR and pt will require a Level II determination due mental illness. Pt cannot be transferred to SNF until evaluated by [place] [facility]. Plan: [facility], pending acceptance and Level II determination [facility]FF[facility]
[2022-01-15 21:20] VITALS: BP 133/78; PULSE 82; RESP 16; TEMP 36.9; O2SAT 96
[2022-01-16] MEDS: Carbidopa/Levodopa/Entacapone 200 1 TAB PO ×5 (05:44→20:06)
[2022-01-16] MEDS: Pramipexole Di-HCl 0.5 MG Tablet 1.5 MG PO ×3 (05:44→20:07)
[2022-01-16 08:53] VITALS: BP 98/53; PULSE 87; RESP 16; TEMP 36.8; O2SAT 97
[2022-01-16] MEDS: Pantoprazole Sodium 20 MG Tablet PO (08:56)
[2022-01-16] MEDS: Citalopram 20 MG Tablet PO (08:56)
[2022-01-16] MEDS: Enoxaparin 40 MG/0.4 ML Syringe SC (08:57)
--- NOTE | 2022-01-16 09:55 | CASEMGMT ---
TC nawaf Mcconnell at [facility] to check on referral for pt. Asked to return call and provided with call back number.
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
--- NOTE | 2022-01-16 12:20 | PN.HOSP_ITS ---
Documented by User: Lawson GAMEZ 01/16/22 12:23 Subjective Subjective Patient is a 66-year-old male comfortably resting in a chair, alert and orient x3. While the patient is appropriately alert and oriented, it is unclear how much he understands but his current condition as his speech seems tangential and very muddled. Does not appear to be in acute distress. No reports of agitation overnight. Objective Data Objective Data Vital Signs: Vital Signs Temp Pulse Resp BP Pulse Ox 98.2 F 87 16 98/53 L 97 01/16/22 08:53 01/16/22 08:53 01/16/22 08:53 01/16/22 08:53 01/16/22 08:53 Oxygen Delivery Method Room Air Weight: 124 lb 15.998 oz Body Mass Index (BMI) 21.1 Intake & Output: Intake and Output for Last 24 Hours 01/14/22 01/15/22 01/16/22 23:59 23:59 23:59 Intake Total 560 / 560 400 / 400 100 / 100 Output Total 300 / 300 Balance 560 / 560 100 / 100 100 / 100 Lab / Micro Data Result Diagrams: 01/12/22 16:20 01/12/22 16:20 Micro: Microbiology 01/12/22 16:20 Nasal Secretion SARS-CoV-2 Antigen (Rapid) - Final Physical Exam Const alert, oriented x3 and no apparent distress HEENT head/scalp atraumatic and moist oral mucous membranes Head and Scalp: normocephalic Eyes PERRL, EOMs intact bilaterally and conjunctivae normal Neck no lymphadenopathy, supple and no JVD Resp normal respiratory effort, no retractions and no use of accessory muscles Cardio regular rate, regular rhythm and no JVD GI normal to inspection, nondistended, normoactive bowel sounds and soft to palp ation Extremity normal to inspection, full ROM and no clubbing, cyanosis or edema Skin no rashes or lesions noted, no wounds and skin turgor normal Neuro CN's II-XII intact bilaterally Psych Mood & Affect: depressed Assessment & Plan Assessment/Plan (1) Dementia: (2) Aggressive behavior due to dementia: (3) Schizoaffective disorder: (4) Dysarthria and anarthria: (5) Parkinson disease: PLAN: Day 2 Discharge planning: Discharge to [facility] pending acceptance/PRE- CERT. 1) adult failure to thrive Currently attempting to get patient placed. 2) Parkinson's disease with dementia/history of disorder No reported agitation from overnight nurses or this morning on my exam. Con tinue Sinemet, Clazuril, entacapone, rasagiline, Mirapex. Ativan as needed. 3) HTN Patient with hypotension throughout admission, currently 98/53. Will discontinue amlodipine and continue to monitor. DVT prophylaxis -Lovenox Patient seen by Lawson Herrera PA-C, under the supervision of Dr. Vega. Time spent on patient care: 7 minutes. Documented by User: Dr. Tan Vega MD 01/16/22 14:13 Subjective Subjective Patient is speech is fragmented and difficult to understand. History of Parkinson's disease. Objective Data Lab / Micro Data Result Diagrams: 01/12/22 16:20 01/12/22 16:20 Physical Exam Narrative General: Alert, Oriented x3, Cooperative HEENT: Atraumatic, PERRLA, EOMI, Normocephalic Oral: No Gingival or Mucosal Lesions/ Ulcerations Neck: Supple, No JVD, Negative Carotid Bruits Lungs: Air entry diminished in bilateral lung bases. No crepitation/rhonchi Cardiovascular: Regular rate, Regular Rhythm, Normal S1, Normal S2, No murmurs Abdomen: Bowel Sounds Present, Soft, Non Tender, Non-Distended : No renal angle tenderness. No suprapubic tenderness. Extremities: No edema, Capillary Refill Less than 3 Seconds Skin: No rashes, No breakdown Musculoskeletal: No Tenderness to Palpation of Joints or Extremities Neurological: Slow and low volume, low pitch, fragmented speech output. Masked facies. Muscle strength 4+/5 at major joints but mild disequilibrim DTR 2+/4 and Symmetrical Psych/Mental Status: Flat affect Assessment & Plan Assessment/Plan (1) Dementia: (2) Parkinson disease: PLAN: This patient was seen in conjunction with VERA Cox. I have independently interviewed and examined the patient and reviewed pertinent history, examination findings, laboratory and plan of management. I have reviewed the note and agree with the documented findings with the few additional points. In brief, patient was admitted with incidence of agitation at [facility] unit. Patient has history of Parkinson's disease and schizoaffective disorder. Patient has decreased speech output, dysarthria, low motivation and flat affect. lawn care worker and vocational case manager are working on it. Patient has moderate loss of subcutaneous fat. Mild chronic protein calorie malnutrition. Hypertension: Blood pressure 98/53 antipsychotic medications. Not on antihypertensive medication. Probability is low because of multiple antipsychotic and antiparkinsonian medications. Right rotator cuff tendinitis or shoulder joint arthritis: Patient complain of mild pain over shoulder joint and stiffness. Outpatient evaluation. I have discussed my assessment with VERA Cox and orders have been reviewed. Charges/Coding Visit Charges Inpatient E&M: 54357 Subs Hosp L2
--- NOTE | 2022-01-16 12:44 | CASEMGMT ---
Social Work MARISELA received determination from [facility]. Pt is ruled out from further review from [place] [facility] due to pt dementia. Second follow up call placed to [facility]. MARISELA spoke with hazmat cdl a driver who states admission director Jayesh is out of the office until later this afternoon. No once else is able to discuss admissions. Cloth Piecer confirms they received referral yesterday and passed it on to Jayesh. MARISELA informed that pt is ready for discharge and requested Jayesh call this SW as soon as possible with determination. MARISELA faxed updated clinicals and will await return call. Plan: Pt would like pt to go to [facility], awaiting acceptance. Pt has been accepted by [facility] should [facility] deny. STEFFANIE Bay
[2022-01-16] MEDS: LORazepam 0.5 MG Tablet PO ×2 (14:26→20:06)
[2022-01-16 18:05] VITALS: BP 128/80; PULSE 80; RESP 17; TEMP 36.8; O2SAT 98
[2022-01-16] MEDS: Zolpidem Tartrate 5 MG Tablet PO (20:06)
[2022-01-17] MEDS: LORazepam 0.5 MG Tablet PO ×2 (03:04→12:57)
[2022-01-17] MEDS: Pramipexole Di-HCl 0.5 MG Tablet 1.5 MG PO ×2 (06:29→12:58)
[2022-01-17] MEDS: Carbidopa/Levodopa/Entacapone 200 1 TAB PO ×3 (06:30→12:59)
--- NOTE | 2022-01-17 09:30 | CASEMGMT ---
Addendum entered by Haven [place] 01/17/22 14:39: Social Work Second phone call to [facility] and voicemail left. Phone call to pt to explain. Pt Niurka states [facility] has notified her that they cannot accept pt. agreeable to discharge to [facility] today. Phone call to Kat at [facility] and they are able to accept pt today. Physician notified and plan to discharge pt. Orders faxed to [facility]. Transportation arranged for [address] [employer]ling [employer] by [facility] via cot. Phone call to pt and updated on discharge time and that pt will be going to [address]. Nursing and Kat at [facility] updated on discharge plan. At this time pt received call from [facility] that they cannot accept pt. Plan: [facility], intermediate level of care. STEFFANIE Bay Original Note: Social Work SW placed call to [facility]. Left message on admissions phone and with culinary worker inquiring about ability to accept pt. SW will await return call. STEFFANIE Bay
[2022-01-17 10:00] VITALS: BP 107/71; PULSE 90; RESP 16; TEMP 37; O2SAT 99
[2022-01-17] MEDS: Pantoprazole Sodium 20 MG Tablet PO (10:00)
[2022-01-17] MEDS: Citalopram 20 MG Tablet PO (10:57)
[2022-01-17] MEDS: Enoxaparin 40 MG/0.4 ML Syringe SC (10:58)
--- NOTE | 2022-01-17 11:51 | PCM.TXEXTCAR ---
Documented by User: Lawson GAMEZ 01/17/22 11:53 Diet 01/13/22 15:15 Diet: Regular - General Food consistency:: Finger Foods Liquid Consistency:: Regular/Thin Type of Dietary Supplement:: Ensure Compact Diet Comments: vanilla milkshakes with meals per spouse/ no utensils/ disposable only Wound(s) rt knee: Wound Type: Abrasion Therapies Weight Bearing: Full weight bearing Physical Therapy: Eval and Treat Occupational Therapy: Eval and Treat Problem/Diagnosis (1) Dementia: Status: Acute (2) Parkinson disease: Status: Acute Allergies/Procedures Done in Hospital Allergies No Known Allergies Allergy (Verified 12/10/21 19:48) Type of Care/Length of Stay Estimated LOS: Convalescent Care Less Than 30 days Type of Care Needed: Skilled Rehab Potential: Good Prognosis: Good Additional Orders/Day of Discharge Day of Discharge: 01/17/22 Dietary and Speech Recommendations Dietitian Recommendations/Changes: continue regular diet (finger foods) as appropriate; will add ensure compact w/ meals for additional protein/calories if consumed. Consult SHOT TUBE MACHINE TENDER for evaluation if issues w/ chewing/swallowing are evident. Discharge Plan Admission Admit Date/Time: 01/13/22 13:54 Primary Reason for Your Visit: Adult failure to thrive Attending Provider: Tan Vega Primary Care Provider: Vivi Joe Consulting Providers: Manuel Colorado ; Milly Brasher Discharge Orders/Prescriptions Prescriptions: Continued pramipexole 1.5 MG tablet extended release 24 hr 1.5 mg PO TID RF: 0 acetaminophen 325 MG tablet 650 mg PO Q4H PRN (Reason: Pain 1-10 Or Fever) RF: 0 rasagiline 1 MG tablet 1 mg PO DAILY RF: 0 amlodipine 5 MG tablet 10 mg PO DAILY RF: 0 omeprazole 20 mg capsule,delayed release(DR/EC) 20 mg PO DAILY RF: 0 sennosides [senna] 8.6 mg Tablet 8.6 mg PO BID PRN (Reason: Constipation) RF: 0 lorazepam 0.5 mg Tablet 0.5 mg PO BID PRN (Reason: Anxiety) RF: 0 eszopiclone 3 mg tablet 3 mg PO QHS RF: 0 cholecalciferol (vitamin D3) [Vitamin D3] 50 mcg (2,000 unit) Tablet 50 mcg PO DAILY RF: 0 clonazepam 0.5 mg tablet 0.5 mg PO QHS RF: 0 entacapone 200 mg tablet 200 mg PO 5X/DAY RF: 0 citalopram 20 mg Tablet 20 mg PO QHS RF: 0 clozapine 25 mg tablet 50 mg PO BID RF: 0 carbidopa-levodopa 25-100 mg Tablet 2 tab PO 5X/DAY RF: 0 haloperidol 2 mg Tablet 2 mg PO BID RF: 0 Referrals / Follow Up: Vivi Joe MD [Primary Care Provider] - Within 2 Weeks Disposition Disposition (needs filled in before D/C Order can be placed): [facility] Facility Documented by User: Dr. Tan Vega MD 01/17/22 14:19 Routine Orders/Code Status Suppository Type: Dulcolax 10mg Suppository Frequency: Daily PRN Therapies Weight Bearing: Weight bearing as tolerated Extremity Affected:: Bilateral Lower Physical Therapy: Eval and Treat Occupational Therapy: Eval and Treat Speech Therapy: Eval and Treat Allergies/Procedures Done in Hospital Allergies No Known Allergies Allergy (Verified 12/10/21 19:48) Discharge Plan Admission Admit Date/Time: 01/13/22 13:54 Primary Reason for Your Visit: Adult failure to thrive Attending Provider: Tan Vega Primary Care Provider: Vivi Joe Consulting Providers: Manuel [place] ; Milly Brasher Discharge Orders/Prescriptions Prescriptions: Continued pramipexole 1.5 MG tablet extended release 24 hr 1.5 mg PO TID RF: 0 acetaminophen 325 MG tablet 650 mg PO Q4H PRN (Reason: Pain 1-10 Or Fever) RF: 0 rasagiline 1 MG tablet 1 mg PO DAILY RF: 0 amlodipine 5 MG tablet 10 mg PO DAILY RF: 0 omeprazole 20 mg capsule,delayed release(DR/EC) 20 mg PO DAILY RF: 0 sennosides [senna] 8.6 mg Tablet 8.6 mg PO BID PRN (Reason: Constipation) RF: 0 lorazepam 0.5 mg Tablet 0.5 mg PO BID PRN (Reason: Anxiety) RF: 0 eszopiclone 3 mg tablet 3 mg PO QHS RF: 0 cholecalciferol (vitamin D3) [Vitamin D3] 50 mcg (2,000 unit) Tablet 50 mcg PO DAILY RF: 0 clonazepam 0.5 mg tablet 0.5 mg PO QHS RF: 0 entacapone 200 mg tablet 200 mg PO 5X/DAY RF: 0 citalopram 20 mg Tablet 20 mg PO QHS RF: 0 clozapine 25 mg tablet 50 mg PO BID RF: 0 carbidopa-levodopa 25-100 mg Tablet 2 tab PO 5X/DAY RF: 0 haloperidol 2 mg Tablet 2 mg PO BID RF: 0 Referrals / Follow Up: Vivi Joe MD [Primary Care Provider] - Within 2 Weeks Disposition Disposition (needs filled in before D/C Order can be placed): [facility]
--- NOTE | 2022-01-17 12:02 | PCM.DC.SUM ---
Documented by User: Lawson GAMEZ 01/17/22 12:08 Providers Date of Admission: 01/13/22 Date of Discharge: 01/17/22 Primary Care Physician: Dr. Vivi Joe MD Reason For Visit: AGITATED DEMENTIA Diagnosis Discharge Diagnosis (1) Dementia: Status: Acute Code(s): F03.90 - Unspecified dementia without behavioral disturbance (2) Parkinson disease: Status: Acute Code(s): G20 - Parkinson's disease Medications at Discharge Home Medications pramipexole 1.5 mg PO TID 10/05/20 acetaminophen 650 mg PO Q4H PRN 10/27/20 rasagiline 1 mg PO DAILY 10/27/20 amlodipine 10 mg PO DAILY 11/10/20 omeprazole 20 mg PO DAILY 08/20/21 lorazepam 0.5 mg PO BID PRN 11/28/21 sennosides [senna] 8.6 mg PO BID PRN 11/28/21 cholecalciferol (vitamin D3) [Vitamin D3] 50 mcg PO DAILY 01/12/22 citalopram 20 mg PO QHS 01/12/22 clonazepam 0.5 mg PO QHS 01/12/22 clozapine 50 mg PO BID 01/12/22 entacapone 200 mg PO 5X/DAY 01/12/22 eszopiclone 3 mg PO QHS 01/12/22 carbidopa-levodopa 2 tab PO 5X/DAY 01/13/22 haloperidol 2 mg PO BID 01/13/22 Hospital Course Summary of Care Provided Minutes Spent on Discharge: 20 Hospital Course: Patient is a 66-year-old male who was admitted to [facility] on 01/13/2022 for evaluation and management of agitation related to dementia at the memory care unit of the SNF he has a resident at. Hospital course and management as below 1) adult failure to thrive Patient [facility], given most recent outburst at current SNF. 2) Parkinson's disease with dementia/history of disorder No reported agitation from overnight nurses or this morning on my exam. Continue Sinemet, Clazuril, entacapone, rasagiline, Mirapex. Patient should follow-up with his primary care provider for any further adjustment of his home regimen. Discharge to SNF with memory care unit as above. 3) HTN Continue home amlodipine. Patient seen by Lawson Herrera PA-C, under the supervision of Dr. Vega. Time spent on patient care: 10 minutes. Physical Exam Narrative Patient is a 66-year-old male resting in a chair, alert and orient x2. Patient still with tangential speech and mumbling. Unclear if patient understands current condition or not. Const alert and no apparent distress HEENT normocephalic, head/scalp atraumatic and hearing grossly normal bilaterally Eyes PERRL, EOMs intact bilaterally and conjunctivae normal Neck no lymphadenopathy, supple and no JVD Resp normal respiratory effort, no retractions and no use of accessory muscles Cardio regular rate, regular rhythm and no JVD GI normal to inspection, nondistended, normoactive bowel sounds and soft to palpation Extremity normal to inspection, full ROM and no clubbing, cyanosis or edema Skin no rashes or lesions noted, no wounds and skin turgor normal Neuro CN's II-XII intact bilaterally Psych affect normal Weight / BMI Weight Weight: 124 lb 15.998 oz Body Mass Index (BMI) 21.1 ABG / Lab / Microbiology Data Result Diagrams: 01/12/22 16:20 01/12/22 16:20 Microbiology: Microbiology 01/12/22 16:20 Nasal Secretion SARS-CoV-2 Antigen (Rapid) - Final Meaningful Use Info Meaningful Use Diagnoses (Choose all that apply): None applicable Discharge Plan Admission Admit Date/Time: 01/13/22 13:54 Primary Reason for Your Visit: Adult failure to thrive Attending Provider: Tan Vega Primary Care Provider: Vivi Joe Consulting Providers: Manuel Colorado ; Milly Brasher Discharge Orders/Prescriptions Prescriptions: Continued pramipexole 1.5 MG tablet extended release 24 hr 1.5 mg PO TID RF: 0 acetaminophen 325 MG tablet 650 mg PO Q4H PRN (Reason: Pain 1-10 Or Fever) RF: 0 rasagiline 1 MG tablet 1 mg PO DAILY RF: 0 amlodipine 5 MG tablet 10 mg PO DAILY RF: 0 omeprazole 20 mg capsule,delayed release(DR/EC) 20 mg PO DAILY RF: 0 sennosides [senna] 8.6 mg Tablet 8.6 mg PO BID PRN (Reason: Constipation) RF: 0 lorazepam 0.5 mg Tablet 0.5 mg PO BID PRN (Reason: Anxiety) RF: 0 eszopiclone 3 mg tablet 3 mg PO QHS RF: 0 cholecalciferol (vitamin D3) [Vitamin D3] 50 mcg (2,000 unit) Tablet 50 mcg PO DAILY RF: 0 clonazepam 0.5 mg tablet 0.5 mg PO QHS RF: 0 entacapone 200 mg tablet 200 mg PO 5X/DAY RF: 0 citalopram 20 mg Tablet 20 mg PO QHS RF: 0 clozapine 25 mg tablet 50 mg PO BID RF: 0 carbidopa-levodopa 25-100 mg Tablet 2 tab PO 5X/DAY RF: 0 haloperidol 2 mg Tablet 2 mg PO BID RF: 0 Referrals / Follow Up: Vivi Joe MD [Primary Care Provider] - Within 2 Weeks Disposition Disposition (needs filled in before D/C Order can be placed): [facility] Documented by User: Dr. Tan Vega MD 01/17/22 14:24 Providers Date of Admission: 01/13/22 Reason For Visit: AGITATED DEMENTIA Medications at Discharge Home Medications pramipexole 1.5 mg PO TID 10/05/20 acetaminophen 650 mg PO Q4H PRN 10/27/20 rasagiline 1 mg PO DAILY 10/27/20 amlodipine 10 mg PO DAILY 11/10/20 omeprazole 20 mg PO DAILY 08/20/21 lorazepam 0.5 mg PO BID PRN 11/28/21 sennosides [senna] 8.6 mg PO BID PRN 11/28/21 cholecalciferol (vitamin D3) [Vitamin D3] 50 mcg PO DAILY 01/12/22 citalopram 20 mg PO QHS 01/12/22 clonazepam 0.5 mg PO QHS 01/12/22 clozapine 50 mg PO BID 01/12/22 entacapone 200 mg PO 5X/DAY 01/12/22 eszopiclone 3 mg PO QHS 01/12/22 carbidopa-levodopa 2 tab PO 5X/DAY 01/13/22 haloperidol 2 mg PO BID 01/13/22 Hospital Course Summary of Care Provided Hospital Course: This patient was seen in conjunction with VERA Cox. I have independently interviewed and examined the patient and reviewed pertinent history, examination findings, laboratory and plan of management. I have reviewed the note and agree with the documented findings with the few additional points. In brief, patient was admitted with incidence of agitation at [facility] unit. Patient has history of Parkinson's disease and schizoaffective disorder. Patient has decreased speech output, dysarthria, low motivation and flat affect. general utility worker and case operator are working on it. Patient has moderate loss of subcutaneous fat. Mild chronic protein calorie malnutrition. Hypertension: Blood pressure on lower side most probably due to multiple antipsychotic medications and antiparkinsonian medications. Not on antihypertensive medication. Right rotator cuff tendinitis or shoulder joint arthritis: Patient complain of mild pain over shoulder joint and stiffness. Outpatient evaluation. Discharge medication reconciliation done. Discharge follow-up instructions completed. Discharge process discussed with the patient and all questions were answered to patient's satisfaction. Total time spent, exact 35 minutes on discharge meds reconciliation, examination, coordination of care with nurses and ancillary staff, review of imaging and blood test and discussion with the patient on follow-up instructions. I have discussed my assessment with VERA Cox and orders have been reviewed. Physical Exam Narrative Seen and examined. General: Alert, Oriented x3, Cooperative HEENT: Atraumatic, PERRLA, EOMI, Normocephalic Oral: No Gingival or Mucosal Lesions/ Ulcerations Neck: Supple, No JVD, Negative Carotid Bruits Lungs: Air entry diminished in bilateral lung bases. No crepitation/rhonchi Cardiovascular: Regular rate, Regular Rhythm, Normal S1, Normal S2, No murmurs Abdomen: Bowel Sounds Present, Soft, Non Tender, Non-Distended : No renal angle tenderness. No suprapubic tenderness. Extremities: No edema, Capillary Refill Less than 3 Seconds Skin: No rashes, No breakdown Musculoskeletal: No Tenderness to Palpation of Joints or Extremities Neurological: Slow and low volume, low pitch, fragmented speech output. Masked facies. Muscle strength 4+/5 at major joints, mild disequilibrim. Psych/Mental Status: Flat affect ABG / Lab / Microbiology Data Result Diagrams: 01/12/22 16:20 01/12/22 16:20 Discharge Plan Admission Admit Date/Time: 01/13/22 13:54 Primary Reason for Your Visit: Adult failure to thrive Attending Provider: Tan Vega Primary Care Provider: Vivi Joe Consulting Providers: Manuel Colorado ; Milly Brasher Discharge Orders/Prescriptions Prescriptions: Continued pramipexole 1.5 MG tablet extended release 24 hr 1.5 mg PO TID RF: 0 acetaminophen 325 MG tablet 650 mg PO Q4H PRN (Reason: Pain 1-10 Or Fever) RF: 0 rasagiline 1 MG tablet 1 mg PO DAILY RF: 0 amlodipine 5 MG tablet 10 mg PO DAILY RF: 0 omeprazole 20 mg capsule,delayed release(DR/EC) 20 mg PO DAILY RF: 0 sennosides [senna] 8.6 mg Tablet 8.6 mg PO BID PRN (Reason: Constipation) RF: 0 lorazepam 0.5 mg Tablet 0.5 mg PO BID PRN (Reason: Anxiety) RF: 0 eszopiclone 3 mg tablet 3 mg PO QHS RF: 0 cholecalciferol (vitamin D3) [Vitamin D3] 50 mcg (2,000 unit) Tablet 50 mcg PO DAILY RF: 0 clonazepam 0.5 mg tablet 0.5 mg PO QHS RF: 0 entacapone 200 mg tablet 200 mg PO 5X/DAY RF: 0 citalopram 20 mg Tablet 20 mg PO QHS RF: 0 clozapine 25 mg tablet 50 mg PO BID RF: 0 carbidopa-levodopa 25-100 mg Tablet 2 tab PO 5X/DAY RF: 0 haloperidol 2 mg Tablet 2 mg PO BID RF: 0 Referrals / Follow Up: Vivi Joe MD [Primary Care Provider] - Within 2 Weeks Disposition Disposition (needs filled in before D/C Order can be placed): [facility] Facility Charges/Coding Visit Charges Inpatient E&M: 44836 Disch Hosp
--- NOTE | 2022-01-17 13:54 | CASEMGMT ---
Jessica Stephens at [facility] updated clinicals, negative covid test, trf and dc summary at this time.
--- NOTE | 2022-01-17 14:36 | NURSING ---
REPORT CALLED TO FRANCIS AT [facility]. PT TO BE TRANSPORTED AT 1500.
== END 2022-01-17 15:07 | disposition skilled nursing facility (03) ==
LOC: ED 17:40 → MS3 01-13 14:25
PROVIDERS: Physician Assistant; Admitting Provider Hospitalist; Emergency Provider Emergency Medicine; PCP Family Medicine; Visit Provider Internal Medicine
DX: R62.7 Adult failure to thrive (principal); G20 Parkinson's disease; F25.9 Schizoaffective disorder, unspecified; F02.81 Dementia in other diseases classified elsewhere, unspecified severity, with behavioral disturbance; I10 Essential (primary) hypertension; R47.1 Dysarthria and anarthria; Z68.21 Body mass index [BMI] 21.0-21.9, adult; Z79.899 Other long term (current) drug therapy; K21.9 Gastro-esophageal reflux disease without esophagitis; Z86.16 Personal history of COVID-19
CPT/HCPCS: 80048; 81001; 85025; 87426; 87811; 96372; 97162; 97530; 97802; 99218; 99285; P9612; A4216; G0378